=== PATIENT | female | born 1975 | race Caucasian/White ===

== ENCOUNTER 2019-04-06 00:41 | Emergency (ER) | payer SELFPAY ==
[2019-04-06 00:47] VITALS: BP 133/90
== END 2019-04-06 00:50 | disposition left against medical advice (07) ==
LOC: ED 00:41
DX: R41.3 Other amnesia (principal); Z53.21 Procedure and treatment not carried out due to patient leaving prior to being seen by health care provider
CPT/HCPCS: 99281

== ENCOUNTER 2019-04-06 06:19 | Emergency (ER) | payer SELFPAY ==
[2019-04-06] MEDS ORDERED: NS 0.9% 1000 ML** 1,000 ML IV ONE (06:54)
--- NOTE | 2019-04-06 06:58 | ED ---
Complex/Multi-Sys Presentation - HPI Summary HPI Summary: Patient is a 43-year-old female who presents emergency department for evaluation of questionable seizure-like activity that occurred through the evening. Patient has a history of IV heroin use states she used around 12 PM last night. Patient states shortly after she had several episodes where she was unconscious and her muscles were twitching and she was rigid according to her friend who is present. Friend states that she seemed to be partially conscious for events. Patient states she does not recall these events but also states she does not recall injecting heroin either. Patient currently complains of feeling fatigued and diffuse muscle soreness. She denies chest pain, shortness breath, fever, chills, abdominal pain, vomiting, diarrhea. She does note numerous wounds an abscess to her right arm. Patient also admits to using methamphetamines yesterday. Patient otherwise denies past medical history. Symptoms are moderate in severity. No current modifying factors. - History Of Current Complaint Chief Complaint: EDSeizure Time Seen by Provider: 04/06/19 06:34 Hx Obtained From: Patient, Family/Major Gifts Director - Allergies/Home Medications Allergies/Adverse Reactions: Allergies Allergy/AdvReac Type Severity Reaction Status Date / Time No Known Allergies Allergy Verified 04/06/19 06:37 PMH/Surg Hx/FS Hx/Imm Hx Previously Healthy: Yes Endocrine/Hematology History: Denies: Hx Anticoagulant Therapy, Hx Diabetes, Hx Thyroid Disease Cardiovascular History: Denies: Hx Congestive Heart Failure, Hx Deep Vein Thrombosis, Hx Hypertension , Hx Myocardial Infarction, Hx Pacemaker/ICD Respiratory History: Denies: Hx Asthma, Hx Chronic Obstructive Pulmonary Disease (COPD), Hx Lung Cancer, Hx Pneumonia, Hx Pulmonary Embolism GI History: Denies: Hx Gall Bladder Disease, Hx Gastrointestinal Bleed, Hx Ulcer, Hx Urosepsis History: Denies: Hx Kidney Stones, Hx Renal Disease Musculoskeletal History: Denies: Hx Rheumatoid Arthritis, Hx Osteoporosis Neurological History: Denies: Hx Dementia, Hx Migraine, Hx Seizures, Hx Transient Ischemic Attacks (TIA) Psychiatric History: Reports: Hx Substance Abuse Denies: Hx Anxiety, Hx Depression, Hx Schizophrenia, Hx Bipolar Disorder - Surgical History Surgery Procedure, Year, and Place: TUBAL LIGATION, APPENDECTOMY 2009 Infectious Disease History: No Infectious Disease History: Reports: Hx Hepatitis - hep c, Hx of Known/ Suspected MRSA Denies: Hx Clostridium Difficile, Hx Shingles, Hx Tuberculosis, Hx Known/ Suspected VRE, Hx Known/Suspected VRSA, History Other Infectious Disease, Traveled Outside the [place] in Last 30 Days - Family History Known Family History: Positive: Cardiac Disease, Hypertension Negative: Diabetes - Social History Occupation: Unemployed Lives: With Family Alcohol Use: Occasionally Hx Substance Use: Yes Substance Use Type: Reports: Heroin Smoking Status (MU): Never Smoked Tobacco Review of Systems Constitutional: Negative Negative: Fever, Chills Eyes: Negative ENT: Negative Cardiovascular: Negative Negative: Palpitations, Chest Pain Respiratory: Negative Negative: Shortness Of Breath, Cough Gastrointestinal: Negative Negative: Abdominal Pain, Vomiting, Diarrhea, Nausea Genitourinary: Negative Positive: Myalgia Positive: Other - numerous wounds Neurological: Other - muscle twitches Negative: Headache, Weakness, Paresthesia, Numbness, Syncope, Slurred Speech All Other Systems Reviewed And Are Negative: Yes Physical Exam Triage Information Reviewed: Yes Vital Signs On Initial Exam: Initial Vitals Temp Pulse Resp BP Pulse Ox 97.4 F 97 18 114/82 100 04/06/19 06:20 04/06/19 06:20 04/06/19 06:20 04/06/19 06:20 04/06/19 06:20 Vital Signs Reviewed: Yes Appearance: Positive: Well-Appearing - Pt. sitting up in bed in NAD. Friend present. Answers questions appropriately Skin: Positive: Warm, Dry, Other - Numerous wounds in various stages of healling to arms and legs. 4 cm area of fluctuance and induration to right AC region with small scab in center. No surrounding erythema. Eyes: Positive: Normal, EOMI, Other: - Pinpoint pupils bilaterally Neck: Positive: Supple, Nontender. Negative: Nuchal Rigidity Respiratory/Lung Sounds: Positive: Clear to Auscultation, Breath Sounds Present Cardiovascular: Positive: Normal, RRR. Negative: Murmur Abdomen Description: Positive: Nontender, Soft Musculoskeletal: Positive: Normal, Strength/ROM Intact Neurological: Positive: Normal, Sensory/Motor Intact, Alert, Oriented to Person Place, Time, CN Intact II-III, Reflexes Intact, Facial Symmetry, Speech Normal. Negative: Disoriented Psychiatric: Positive: Affect/Mood Appropriate - Dawn Coma Scale Best Eye Response: 4 - Spontaneous Best Motor Response: 6 - Obeys Commands Best Verbal Response: 5 - Oriented Coma Scale Total: 15 Procedures - Incision and Drainage Right Upper Anterior Arm Site: Right AC Anesthesia: Local, Lidocaine Instrument(s): Needle Diagnostics - Vital Signs Vital Signs Temp Pulse Resp BP Pulse Ox 04/06/19 06:40 98.6 F 04/06/19 06:39 93 23 97 04/06/19 06:37 90 22 112/66 100 04/06/19 06:20 97.4 F 97 18 114/82 100 - Laboratory Result Diagrams: 04/06/19 07:24 04/06/19 07:24 Lab Statement: Any lab studies that have been ordered have been reviewed, and results considered in the medical decision making process. Complex Multi-Symp Course/Dx Course Of Treatment: Pt. presenting with the above complaints. She is afebrile with stable VS. Neuro exam is unremarkable. Basic labs obtained and are unremarkable. Pt. in ER for roughly 3 hours without change in MS. Pt. has large abscess to right AC region. Pt. agreed to I and D. After incision made to right abscess, no purulent matter initially able to be expressed and pt. refused any futher probing of area. Area cleaned and dressed. WIll treat with clindamycin. To apply warm compresses. To schedule apt. with PCP in 2-3 days for further evaluation and wound check. To return to ER if sxs change or worsen. - Diagnoses Differential Diagnoses/HQI/PQRI: Metabolic Abnormality, Sepsis, Urinary Tract Infection, Other Provider Diagnoses: Abscess, Involuntary muscle contractions, IV drug user Discharge - Sign-Out/Discharge Documenting (check all that apply): Patient Departure Patient Received Moderate/Deep Sedation with Procedure: No - Discharge Plan Condition: Good Disposition: HOME Prescriptions: Clindamycin HCl 300 mg PO QID #40 capsule Patient Education Materials: Abscess (ED), Polysubstance Abuse (ED) Referrals: Logan Jay MD [Primary Care Provider] - Additional Instructions: Call PCP today for a close follow up appointment Take antibiotic as directed Apply warm compresses Avoid drug use Return to ER if symptoms change or worsen - Billing Disposition and Condition Condition: GOOD Disposition: Home
[2019-04-06 07:44] LABS: ABS Basophils 0.1 10^3/ul (0-0.2); ABS Eosinophils 0.5 10^3/ul (0-0.6); ABS Monocytes 0.8 10^3/ul (0-0.8); ABS Neutrophils 4.5 10^3/ul (1.5-7.7); Hematocrit 34 % (35-47); Hemoglobin 11.1 g/dL (12.0-16.0); Lymphocyte % 25.4 %; Mean Corpuscular HGB Conc 33 g/dL (31-36); Mean Corpuscular Hemoglobin 27 pg (27-31); Mean Corpuscular Volume 81 fL (80-97); Mean Platelet Volume 7.8 fL (7.4-10.4); Platelet Count 294 10^3/uL (150-450); Red Blood Count 4.13 10^6 /uL (3.70-4.87); Red Cell Distribution Width 16 % (10.5-15); White Blood Count 7.8 10^3/uL (3.5-10.8)
[2019-04-06 07:47] LABS: INR 0.97 (0.82-1.09)
[2019-04-06 08:06] LABS: ALT 28 U/L (7-52); AST 24 U/L (13-39); Albumin 3.6 g/dL (3.2-5.2); Alkaline Phosphatase 96 U/L (34-104); Anion Gap 4 mmol/L (2-11); BUN/Creatinine Ratio 19.1 (8-20); Blood Urea Nitrogen 13 mg/dL (6-24); CO2 Carbon Dioxide 26 mmol/L (22-32); Chloride 106 mmol/L (101-111); Creatine Kinase 90 U/L (10-223); EGFR African American 114.8 (>60); EGFR Non-African American 94.9 (>60); Globulin 3.5 g/dL (2-4); Glucose 116 mg/dL (70-100); Potassium 3.8 mmol/L (3.5-5.0); Sodium 136 mmol/L (135-145); Total Protein 7.1 g/dL (6.4-8.9)
[2019-04-06 08:08] LABS: HCG Pregnancy < 0.60 mIU/mL
[2019-04-06 09:01] LABS: Urine Appearance Cloudy; Urine Bacteria Absent (Absent); Urine Bilirubin Negative (Negative); Urine Blood Negative (Negative); Urine Color Yellow; Urine Glucose Negative (Negative); Urine Ketones Negative (Negative); Urine Nitrite Negative (Negative); Urine Protein Negative (Negative); Urine Red Blood Cell Trace(0-2/hpf) (Absent); Urine Specific Gravity 1.012 (1.010-1.030); Urine Squamous Epithelial Cell Present (Absent); Urine Urobilinogen Negative (Negative); Urine White Blood Cell Trace(0-5/hpf) (Absent)
[2019-04-06] MEDS ORDERED: Lidocaine 1%* 5 ML VIAL INJ ONE (09:06)
[2019-04-06 10:15] VITALS: BP 112/68
== END 2019-04-06 10:14 | disposition home or self-care (01) ==
LOC: ED 06:19
DX: L02.413 Cutaneous abscess of right upper limb (principal); M62.40 Contracture of muscle, unspecified site; F19.20 Other psychoactive substance dependence, uncomplicated; B19.20 Unspecified viral hepatitis C without hepatic coma
CPT/HCPCS: 36415; 80053; 81003; 81015; 82550; 83605; 83735; 84484; 84702; 85025; 85610; 87086; 93005; 99282

== ENCOUNTER 2019-11-16 15:10 | Emergency (ER) | payer MEDICAID ==
[2019-11-16 15:33] VITALS: BP 109/75
--- NOTE | 2019-11-16 16:36 | UC ---
Hand/Wrist HPI - HPI Summary HPI Summary: The patient is a 44-year-old female with a three-day history of progressively worsening bilateral hand paresthesias. They are worse at night. 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 Both her right and left hands frequently involved. She has numbness and tingling of all her fingers. Of note she states she has had a 15 pound weight gain in the past 2-3 weeks. She has also noticed that she is growing long facial hair. - History Of Current Complaint Chief Complaint: UCGeneralIllness Stated Complaint: FATIGUE, FINGER NUMBNESS Time Seen by Provider: 11/16/19 16:09 Hx Obtained From: Patient Hx Last Menstrual Period: 05/05/16 Onset/Duration: Gradual Onset, Lasting Days Severity Initially: Mild Severity Currently: Moderate Pain Intensity: 7 Pain Scale Used: 0-10 Numeric Character Of Pain: Burning - tingling Aggravating Factor(s): Movement Alleviating Factor(s): Rest Associated Signs And Symptoms: Positive: Numbness/Tingling Related History: Dominant Hand Right - Allergies/Home Medications Allergies/Adverse Reactions: Allergies Allergy/AdvReac Type Severity Reaction Status Date / Time No Known Allergies Allergy Verified 04/06/19 06:37 PMH/Surg Hx/FS Hx/Imm Hx Previously Healthy: Yes Other History Of: Negative For: Anticoagulant Therapy - Surgical History Surgical History: Yes Surgery Procedure, Year, and Place: TUBAL LIGATION, APPENDECTOMY 2009 - Family History Known Family History: Positive: Cardiac Disease, Hypertension Negative: Diabetes - Social History Alcohol Use: None Substance Use Type: None Smoking Status (MU): Never Smoked Tobacco Review of Systems All Other Systems Reviewed And Are Negative: Yes Constitutional: Positive: Negative Skin: Positive: Negative Eyes: Positive: Negative ENT: Positive: Negative Respiratory: Positive: Negative Cardiovascular: Positive: Negative Gastrointestinal: Positive: Negative Genitourinary: Positive: Negative Motor: Positive: Negative Neurovascular: Positive: Negative Musculoskeletal: Positive: Arthralgia - right wrist/left wrist Neurological: Positive: Paresthesia - bilat hands Psychological: Positive: Negative Physical Exam Triage Information Reviewed: Yes Appearance: Well-Appearing, No Pain Distress, Well-Nourished Vital Signs: Initial Vital Signs Temp 98.7 F 11/16/19 15:27 Pulse 73 11/16/19 15:27 Resp 18 11/16/19 15:27 BP 109/75 11/16/19 15:27 Pulse Ox 99 11/16/19 15:27 Vital Signs Reviewed: Yes Eyes: Positive: Conjunctiva Clear ENT: Positive: Hearing grossly normal. Negative: Nasal congestion, Nasal drainage, Tonsillar swelling, Tonsillar exudate, Muffled voice, Dental tenderness Dental Exam: Normal Neck: Positive: Supple, Nontender, No Lymphadenopathy, Other: - no thyromegaly Respiratory: Positive: Lungs clear, Normal breath sounds, No respiratory distress, No accessory muscle use, Respiratory distress Cardiovascular: Positive: RRR Musculoskeletal: Positive: ROM Intact, No Edema, Other: - bilateral + tinels and phalens Neurological: Positive: Alert Psychological Exam: Normal Skin Exam: Other - hirsuite Hand/Wrist Course/Dx - Differential Dx/Diagnosis Provider Diagnosis: Weight gain, Hand paresthesia Discharge ED - Sign-Out/Discharge Documenting (check all that apply): Patient Departure All imaging exams completed and their final reports reviewed: No Studies - Discharge Plan Condition: Stable Disposition: HOME Patient Education Materials: Paresthesia (ED) Forms: *Work Release Referrals: Logan Jay MD [Primary Care Provider] - 7 Days Additional Instructions: aleve 1-2 twice daily you will need further evaluation of your symptoms try wrist splint at night blood work pending - Billing Disposition and Condition Condition: STABLE Disposition: Home
[2019-11-16 19:02] LABS: ABS Eosinophils 0.2 10^3/ul (0-0.6); ABS Lymphocytes 1.5 10^3/ul (1.0-4.8); ABS Monocytes 0.6 10^3/ul (0-0.8); ABS Neutrophils 2.1 10^3/ul (1.5-7.7); Hematocrit 39 % (35-47); Hemoglobin 13.1 g/dL (12.0-16.0); Lymphocyte % 34.5 %; Mean Corpuscular HGB Conc 34 g/dL (31-36); Mean Corpuscular Hemoglobin 29 pg (27-31); Mean Corpuscular Volume 87 fL (80-97); Mean Platelet Volume 7.9 fL (7.4-10.4); Nucleated Red Blood Cells % 0.1; Platelet Count 248 10^3/uL (150-450); Red Blood Count 4.47 10^6 /uL (3.70-4.87); Red Cell Distribution Width 14 % (10-15); White Blood Count 4.4 10^3/uL (3.5-10.8)
[2019-11-16 19:17] LABS: Albumin 3.8 g/dL (3.2-5.2); Calcium 8.8 mg/dL (8.6-10.3); Potassium 4.4 mmol/L (3.5-5.0); Total Bilirubin 0.3 mg/dL (0.2-1.0)
[2019-11-16 19:23] LABS: Albumin/Globulin Ratio 1.3 (1-3); BUN/Creatinine Ratio 19.4 (8-20); EGFR Non-African American 88.4 (>60); Total Protein 6.8 g/dL (6.4-8.9)
[2019-11-16 19:39] LABS: TSH (Thyroid Stimulating Horm) 3.67 mcIU/mL (0.34-5.60)
--- NOTE | 2019-11-17 20:49 | UC ---
- Progress Note Progress Note: CBC and CMP reviewed. CBC normal. CMP unremarkable except for mildly elevated ALT and AST which are unlikely related to patient's symptoms and may represent a normal variant for the patient. She should keep her follow up as previously instructed. No change in her plan of care. Course/Dx - Diagnoses Provider Diagnoses: Weight gain, Hand paresthesia Discharge ED - Sign-Out/Discharge Documenting (check all that apply): Post-Discharge Follow Up All imaging exams completed and their final reports reviewed: No Studies - Discharge Plan Condition: Stable Disposition: HOME Patient Education Materials: Paresthesia (ED) Forms: *Work Release Referrals: Logan Jay MD [Primary Care Provider] - 7 Days Additional Instructions: aleve 1-2 twice daily you will need further evaluation of your symptoms try wrist splint at night blood work pending - Billing Disposition and Condition Condition: STABLE Disposition: Home
--- NOTE | 2019-11-19 09:44 | UC ---
- Progress Note Progress Note: Antinuclear antibody lab results from November 16, 2019 comes back as weakly positive at 1.7. The week positive ranges 1.1 - 2.9. The antinuclear antibody is a marker for inflammation. However it's relatively nonspecific and does not give us a specific diagnosis for the patient's condition hand tingling. CBC normal CMP shows a slightly elevated ALT and AST. Nursing to call patient inform them of the results and to follow-up with her primary care doctor about these results and they're symptoms. Course/Dx - Diagnoses Provider Diagnoses: Weight gain, Hand paresthesia Discharge ED - Sign-Out/Discharge Documenting (check all that apply): Patient Departure All imaging exams completed and their final reports reviewed: No Studies - Discharge Plan Condition: Stable Disposition: HOME Patient Education Materials: Paresthesia (ED) Forms: *Work Release Referrals: Logan Jay MD [Primary Care Provider] - 7 Days Additional Instructions: aleve 1-2 twice daily you will need further evaluation of your symptoms try wrist splint at night blood work pending - Billing Disposition and Condition Condition: STABLE Disposition: Home
== END 2019-11-16 16:56 | disposition home or self-care (01) ==
LOC: UCEAST 15:10
DX: R20.2 Paresthesia of skin (principal); R63.5 Abnormal weight gain; M25.532 Pain in left wrist; M25.531 Pain in right wrist
CPT/HCPCS: 36415; 80053; 81003; 84443; 84702; 85025; 86038; 99212; G0463

== ENCOUNTER 2019-11-20 16:58 | Emergency (ER) | payer MEDICAID ==
[2019-11-20 17:12] VITALS: BP 122/67
--- NOTE | 2019-11-20 17:12 | UC ---
Neck Pain HPI - HPI Summary HPI Summary: 44 yo female presents with b/l hand numbness. She tells me that over the last week or so she has noticed b/l hand paresthesias that is worse in the right hand. She states that when she is working or using her hands a lot that these are worse. Better with rest. She works in a grocery store. She states she has tingling and numbness in her entire right hand, but in the left it tends to only be her 5th and 1st digits. Also mentions some neck pain that has been ongoing for months - no radiating pain or numbness extending from neck. Denies specific injury. She is left handed - History of Current Complaint Chief Complaint: UCGeneralIllness Stated Complaint: NUMBNESS IN HANDS Time Seen by Provider: 11/20/19 17:11 Hx Obtained From: Patient Hx Last Menstrual Period: SEPTEMBER 2019 Onset/Duration: Gradual Onset Severity: Moderate Pain Intensity: 8 Pain Scale Used: 0-10 Numeric - Allergies/Home Medications Allergies/Adverse Reactions: Allergies Allergy/AdvReac Type Severity Reaction Status Date / Time No Known Allergies Allergy Verified 04/06/19 06:37 PMH/Surg Hx/FS Hx/Imm Hx - Additional Past Medical History Additional PMH: IVDA Other History Of: Negative For: Anticoagulant Therapy - Surgical History Surgical History: Yes Surgery Procedure, Year, and Place: TUBAL LIGATION, APPENDECTOMY 2009 - Family History Known Family History: Positive: Cardiac Disease, Hypertension Negative: Diabetes - Social History Alcohol Use: None Substance Use Type: Heroin - past Smoking Status (MU): Never Smoked Tobacco Review of Systems All Other Systems Reviewed And Are Negative: No Constitutional: Positive: Negative Skin: Positive: Negative Respiratory: Positive: Negative Cardiovascular: Positive: Negative Gastrointestinal: Positive: Negative Neurovascular: Positive: Negative Musculoskeletal: Positive: Other: - Neck pain Neurological: Positive: Paresthesia Psychological: Positive: Negative Physical Exam - Summary Physical Exam Summary: GENERAL: NAD. WDWN. No pain distress. SKIN: No rashes, sores, lesions, or open wounds. NECK: FROM. NTTP. Negative spurlings. CHEST: No accessory muscle use. Breathing comfortably and in no distress. CV: Pulses intact radial and ulnar. Cap refill <2seconds MSK: RIGHT WRIST: FROM. NTTP. Strength 5/5 including plaster foreman strength. No edema or obvious bony deformities. No snuffbox tenderness. Positive phalen. LEFT WRIST: FROM. NTTP. Strength 5/5 including plaster foreman strength. No edema or obvious bony deformities. No snuffbox tenderness. Weakly positive phalen. NEURO: Alert. Sensations intact hand and all fingers. PSYCH: Age appropriate behavior. Triage Information Reviewed: Yes Vital Signs: Initial Vital Signs Temp 97.9 F 11/20/19 17:09 Pulse 68 11/20/19 17:09 Resp 18 11/20/19 17:09 BP 122/67 11/20/19 17:09 Pulse Ox 100 11/20/19 17:09 Vital Signs Reviewed: Yes Diagnostics - Radiology B/L wrists Radiology Interpretation Completed By: Radiologist Summary of Radiographic Findings: IMPRESSION: No fracture identified. Cervical Radiology Interpretation Completed By: Radiologist Summary of Radiographic Findings: IMPRESSION: 1. Mild multilevel spondylosis with no compression deformity of cervical spine. Neck Pain Course/Dx - Course Course Of Treatment: XRs as above. 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 Advised to continue using wrist brace and f/u with Orthopedics for further evaluation. Will draw for lyme test today as this was not done on her previous labwork. Reviewed labwork from her last visit and recommended f/u with PCP - she states Dr. Ambriz is no longer her PCP, therefore she was provided with the [facility] [place] information to establish. - Differential Dx/Diagnosis Provider Diagnosis: Hand paresthesia Discharge ED - Sign-Out/Discharge Documenting (check all that apply): Patient Departure All imaging exams completed and their final reports reviewed: Yes - Discharge Plan Condition: Stable Disposition: HOME Patient Education Materials: Paresthesia (ED) Forms: *Work Release Referrals: Logan Jay MD [Primary Care Provider] - Tanika Sapp MD [Medical Doctor] - As Soon As Possible [facility] [Outside] - As Soon As Possible Additional Instructions: If you develop a fever, shortness of breath, chest pain, new or worsening symptoms - please call your PCP or go to the ED immediately. I recommend that you call Orthopedics at the number below to schedule an appointment for further evaluation of your hand numbness Lyme test is pending - Billing Disposition and Condition Condition: STABLE Disposition: Home - Attestation Statements Provider Attestation: Per institutional requirements, I have reviewed the chart, however, I was not consulted specifically or made aware of this patient by the midlevel provider. I did not personally evaluate, interact with , or disposition this patient.
== END 2019-11-20 18:20 | disposition home or self-care (01) ==
LOC: UCEAST 16:58
DX: R20.2 Paresthesia of skin (principal); M47.892 Other spondylosis, cervical region; M54.2 Cervicalgia
CPT/HCPCS: 36415; 72050; 86618; 99211; G0463

== ENCOUNTER 2019-11-29 20:29 | Emergency (ER) | payer MEDICAID ==
[2019-11-29 20:38] VITALS: BP 143/87
[2019-11-29] MEDS ORDERED: hydrOXYzine HCL TAB* 25 MG PO ONE (21:10)
--- NOTE | 2019-11-29 21:22 | UC ---
Palpitation/Dysrhythmia HP - HPI Summary HPI Summary: The patient is a 44-year-old female who is had a three-day history of anxiety, panic, fluttering in her stomach, and palpitations. She states that she knows she know she has an ectopic atrial rhythm. She missed 2 days of work last week and requests an excuse. She states she has been under a lot of stress of both home and work. She denies any suicidal or homicidal ideation. She denies any hallucinations. She was seen here a few weeks ago with bilateral arm paresthesias which she states haven't improved. She did not seek follow-up with that issue yet. - History of Current Complaint Chief Complaint: UCGeneralIllness Stated Complaint: ANXIOUS Time Seen by Provider: 11/29/19 20:33 Hx Obtained From: Patient Hx Last Menstrual Period: 09/25/19 Onset/Duration: Gradual Onset, Lasting Days Timing: Constant Severity Initially: Moderate Severity Currently: Moderate Pain Intensity: 0 Pain Scale Used: 0-10 Numeric Character: Pounding, Fluttering Aggravating Factor(s): Other - stree Alleviating Factor(s): Nothing Associated Signs & Symptoms: Negative: Lightheadedness, Dizzy, Syncope, Chest Pain, Shortness of Breath, Diaphoresis, Nausea, Vomiting - Allergy/Home Medications Allergies/Adverse Reactions: Allergies Allergy/AdvReac Type Severity Reaction Status Date / Time No Known Allergies Allergy Verified 11/29/19 20:38 Home Medications: Home Medications Buprenorphine HCl/Naloxone HCl [Suboxone 12 mg-3 mg Sl Film] 1 film PO DAILY [History Confirmed 11/29/19] PMH/Surg Hx/FS Hx/Imm Hx Previously Healthy: Yes - hx IVDA Other History Of: Negative For: Anticoagulant Therapy - Surgical History Surgical History: Yes Surgery Procedure, Year, and Place: TUBAL LIGATION, APPENDECTOMY 2009 - Family History Known Family History: Positive: Cardiac Disease, Hypertension Negative: Diabetes - Social History Alcohol Use: None Substance Use Type: None Smoking Status (MU): Never Smoked Tobacco Review of Systems All Other Systems Reviewed And Are Negative: Yes Constitutional: Positive: Negative Skin: Positive: Negative Eyes: Positive: Negative ENT: Positive: Negative Respiratory: Positive: Negative Cardiovascular: Positive: Palpitations Gastrointestinal: Positive: Negative Genitourinary: Positive: Negative Motor: Positive: Negative Neurovascular: Positive: Negative Musculoskeletal: Positive: Negative Neurological: Positive: Negative Psychological: Positive: Anxious Physical Exam Triage Information Reviewed: Yes Appearance: Well-Appearing, No Pain Distress, Well-Nourished Vital Signs: Initial Vital Signs Temp 99.2 F 11/29/19 20:31 Pulse 76 11/29/19 20:31 Resp 12 11/29/19 20:31 BP 143/87 11/29/19 20:31 Pulse Ox 100 11/29/19 20:31 Vital Signs Reviewed: Yes Eyes: Positive: Conjunctiva Clear ENT: Positive: Hearing grossly normal, Uvula midline. Negative: Nasal congestion, Nasal drainage Neck: Positive: Supple, Nontender, No Lymphadenopathy Respiratory: Positive: Lungs clear, Normal breath sounds, No respiratory distress, No accessory muscle use Cardiovascular: Positive: RRR, No Murmur Abdomen Description: Positive: Nontender, Soft. Negative: CVA Tenderness (R), CVA Tenderness (L) Musculoskeletal: Positive: ROM Intact, No Edema Neurological Exam: Other - no tremors/non focal exam Neurological: Positive: Alert Psychological Exam: Normal Skin Exam: Normal Diagnostics - EKG Cardiac Rate: NL Cardiac Rhythm: Other Rhythm: Old - ectopic atrial rhythm ST Segment: Normal EKG Comparison: No Significant Change Palpitations Course/Dx - Differential Dx/Diagnosis Provider Diagnosis: Situational anxiety, Palpitations Discharge ED - Sign-Out/Discharge Documenting (check all that apply): Patient Departure All imaging exams completed and their final reports reviewed: No Studies - Discharge Plan Condition: Stable Disposition: HOME Prescriptions: busPIRone TAB* [Buspar TAB*] 10 mg PO BID #30 tab Patient Education Materials: Anxiety (ED), Heart Palpitations (ED) Forms: *Gen. Provider Communication, *Work Release Referrals: [facility] [Outside] - As Soon As Possible Additional Instructions: avoid caffeine/alcohol/smoking - Billing Disposition and Condition Condition: STABLE Disposition: Home
== END 2019-11-29 21:25 | disposition home or self-care (01) ==
LOC: UCEAST 20:29
DX: F41.8 Other specified anxiety disorders (principal); R00.2 Palpitations
CPT/HCPCS: 99212; A9270-GY; G0463

== ENCOUNTER 2019-12-23 21:22 | Emergency (ER) | payer OTHER ==
[2019-12-23 21:44] VITALS: BP 141/88
[2019-12-23 21:57] LABS: Influenza A Molecular NEGATIVE (Negative); Influenza B Molecular NEGATIVE (Negative)
--- NOTE | 2019-12-23 22:14 | UC ---
FLU HPI - HPI Summary HPI Summary: ONSET LAST NIGHT OF CHILLS, BODY ACHES, NAUSEA AND FATIGUE. IS CONCERNED ABOUT FLU. NO COUGH, CONGESTION, SORE THROAT OR EAR PAIN. NO NAUSEA/VOMITING. - History of Current Complaint Chief Complaint: UCGeneralIllness Stated Complaint: FLU-LIKE SYMPTOMS Time Seen by Provider: 12/23/19 21:25 Hx Obtained From: Patient Hx Last Menstrual Period: 2 weeks ago Onset/Duration: Gradual Onset, Lasting Days - 1 DAY, Still Present Severity Currently: Moderate Severity Initially: Moderate Pain Intensity: 6 Pain Scale Used: 0-10 Numeric Associated Signs & Symptoms: Positive: Myalgia. Negative: Fever, Cough, Sore Throat, Nasal Congestion - Allergy/Home Medications Allergies/Adverse Reactions: Allergies Allergy/AdvReac Type Severity Reaction Status Date / Time No Known Allergies Allergy Verified 12/23/19 21:42 PMH/Surg Hx/FS Hx/Imm Hx Psychological History: Anxiety Other History Of: Hepatitis C Negative For: Anticoagulant Therapy - Surgical History Surgical History: Yes Surgery Procedure, Year, and Place: TUBAL LIGATION, APPENDECTOMY 2009 - Family History Known Family History: Positive: Cardiac Disease, Hypertension Negative: Diabetes - Social History Alcohol Use: None Substance Use Type: None Smoking Status (MU): Never Smoked Tobacco Review of Systems All Other Systems Reviewed And Are Negative: Yes Constitutional: Positive: Chills, Fatigue ENT: Positive: Negative Respiratory: Positive: Negative Cardiovascular: Positive: Negative Gastrointestinal: Positive: Nausea Genitourinary: Positive: Negative Musculoskeletal: Positive: Myalgia Physical Exam Triage Information Reviewed: Yes Appearance: Well-Appearing, No Pain Distress, Well-Nourished Vital Signs: Initial Vital Signs Temp 98.9 F 12/23/19 21:42 Pulse 93 12/23/19 21:42 Resp 18 12/23/19 21:42 BP 141/88 12/23/19 21:42 Pulse Ox 96 12/23/19 21:42 Laboratory Tests 12/23/19 21:46 Influenza A (Rapid) Negative Influenza B (Rapid) Negative Vital Signs Reviewed: Yes Eyes: Positive: Conjunctiva Clear ENT: Positive: Hearing grossly normal, Pharynx normal, TMs normal Neck: Positive: Supple, Nontender, No Lymphadenopathy Respiratory Exam: Normal Cardiovascular Exam: Normal Abdomen Description: Positive: Soft Musculoskeletal: Positive: No Edema Neurological: Positive: Alert Psychological: Positive: Age Appropriate Behavior Skin: Negative: Rashes Flu Course/Dx - Course Course Of Treatment: FLU SWAB NEGATIVE. LIKELY VIRALLY MEDIATED SYMPTOMS THAT SHOULD RESOLVE ON THEIR WITH TIME. REST, HYDRATE, OTC MEDS NEEDED. FOLLOW-UP IF NOT IMPROVING EXPECTED OVER THE NEXT WEEK OR SO. - Differential Dx/Diagnosis Provider Diagnosis: Viral syndrome Discharge ED - Sign-Out/Discharge Documenting (check all that apply): Patient Departure All imaging exams completed and their final reports reviewed: No Studies - Discharge Plan Condition: Stable Disposition: HOME Patient Education Materials: Viral Syndrome (ED) Forms: *Work Release Referrals: Logan Jay MD [Medical Doctor] - If Needed Additional Instructions: FLU SWAB NEGATIVE. YOUR SYMPTOMS ARE LIKELY VIRALLY MEDIATED AND SHOULD RESOLVE ON THEIR OWN WITH TIME. NO INDICATION FOR ANTIBIOTICS AT PRESENT. REST, HYDRATE , OTC MEDS NEEDED. SEEK FOLLOW-UP IF YOU ARE NOT IMPROVING OVER THE NEXT 1-2 WEEKS. - Billing Disposition and Condition Condition: STABLE Disposition: Home
== END 2019-12-23 22:15 | disposition home or self-care (01) ==
LOC: UCEAST 21:22
DX: B34.9 Viral infection, unspecified (principal); R68.83 Chills (without fever); M79.10 Myalgia, unspecified site; R11.0 Nausea; R53.83 Other fatigue
CPT/HCPCS: 99211; G0463

== ENCOUNTER 2021-01-15 05:52 | Inpatient (IN) ==
[2021-01-15] MEDS ORDERED: NS 0.9% 1000 ml BAG 1,000 ML IV ONE ×2 (06:17→10:10)
[2021-01-15 09:08] LABS: ABS Basophils 0.1 10^3/ul (0-0.2); ABS Lymphocytes 0.9 10^3/ul (1.0-4.8); ABS Monocytes 1.4 10^3/ul (0-0.8); ABS Neutrophils 11.6 10^3/ul (1.5-7.7); Eosinophil % 0.2 %; Hematocrit 35 % (35-47); Lymphocyte % 6.4 %; Mean Corpuscular HGB Conc 34 g/dL (31-36); Mean Corpuscular Hemoglobin 31 pg (27-31); Mean Corpuscular Volume 90 fL (80-97); Mean Platelet Volume 7.8 fL (7.4-10.4); Nucleated Red Blood Cells % 0.1; Platelet Count 286 10^3/uL (150-450); Red Blood Count 3.88 10^6 /uL (3.70-4.87); Red Cell Distribution Width 14 % (10-15); White Blood Count 13.9 10^3/uL (3.5-10.8)
[2021-01-15 09:33] LABS: ALT 43 U/L (7-52); AST 34 U/L (13-39); Albumin 3.1 g/dL (3.2-5.2); Albumin/Globulin Ratio 0.9 (1-3); Alkaline Phosphatase 136 U/L (34-104); Anion Gap 10 mmol/L (2-11); BUN/Creatinine Ratio 13.2 (8-20); Blood Urea Nitrogen 7 mg/dL (6-24); C Reactive Protein 266.71 mg/L (<8.01); CO2 Carbon Dioxide 24 mmol/L (22-32); Calcium 8.4 mg/dL (8.6-10.3); Chloride 93 mmol/L (101-111); EGFR African American 151.6 (>60); EGFR Non-African American 125.3 (>60); Globulin 3.4 g/dL (2-4); Glucose 98 mg/dL (70-100); Potassium 3.1 mmol/L (3.5-5.0); Sodium 127 mmol/L (135-145); Total Protein 6.5 g/dL (6.4-8.9)
[2021-01-15 09:34] LABS: Troponin I 0.05 ng/mL (<0.03)
[2021-01-15] MEDS ORDERED: Iohexol 300 (CONTRAST) 10 ML SDV IV ONE (09:41)
[2021-01-15 09:50] LABS: INR 1.29 (0.82-1.09)
[2021-01-15 10:02] LABS: Ferritin 106.8 ng/mL (11-307)
[2021-01-15 11:15] LABS: LDH 316 U/L (140-271)
[2021-01-15] MEDS ORDERED: Vancomycin 1,500 MG in NS 0.9% 250 ml 250 ML IVPB ONE (12:16)
[2021-01-15] MEDS ORDERED: cefTRIAXone 2 GM ADDV.VIAL 2 GM in NS 0.9% 100 ml BAG 100 ML IVPB ONE (12:16)
[2021-01-15 12:39] LABS: Erythrocyte Sed Rate 84 mm/Hr (0-19)
[2021-01-15] MEDS ORDERED: Ondansetron 4 mg VIAL 2 MG/ML 2 ml VIAL IV PRN (13:21)
[2021-01-15] MEDS ORDERED: NS 0.9% 250 ml 250 ML ONE (13:39)
[2021-01-15] MEDS ORDERED: Enoxaparin 40 MG/0.4 ML SYR SUBCUT SCH (14:00)
[2021-01-15] MEDS ORDERED: Vancomycin per Pharmacy 1 EA NOTE FOLLOW UP SCH (14:00)
[2021-01-15] MEDS ORDERED: Potassium Chloride LIQUID 20 MEQ/15 ML LIQUID PO ONE (14:21)
[2021-01-15] MEDS ORDERED: HYDROmorphone 1 MG/1 ML SYRINGE IV SLOW PU ONE ×2 (14:24→16:23)
[2021-01-15 15:17] LABS: Troponin I 0.03 ng/mL (<0.03)
[2021-01-15] MEDS: Calcium Carb (TUMS) 500 mg CHEW TAB PO PRN (15:52)
[2021-01-15] MEDS ORDERED: Gadoteridol (CONTRAST) 279.3 MG/ML 10 ML IV ONE (18:15)
[2021-01-15] MEDS: Vancomycin 1000 MG in NS 0.9% 250 ML IVPB SCH (20:27)
[2021-01-15] MEDS: Morphine 2 MG/ML SYRINGE IV PRN (21:38)
[2021-01-16] MEDS: Morphine 2 MG/ML SYRINGE IV PRN ×5 (05:09→23:09)
[2021-01-16] MEDS: Vancomycin 1000 MG in NS 0.9% 250 ML IVPB SCH (05:10)
[2021-01-16 07:20] LABS: ABS Lymphocytes 0.8 10^3/ul (1.0-4.8); ABS Monocytes 1.3 10^3/ul (0-0.8); Eosinophil % 0.3 %; Hematocrit 36 % (35-47); Hemoglobin 11.9 g/dL (12.0-16.0); Lymphocyte % 5.3 %; Mean Corpuscular HGB Conc 33 g/dL (31-36); Mean Corpuscular Hemoglobin 30 pg (27-31); Mean Corpuscular Volume 91 fL (80-97); Mean Platelet Volume 7.1 fL (7.4-10.4); Nucleated Red Blood Cells % 0.1; Platelet Count 291 10^3/uL (150-450); Red Cell Distribution Width 14 % (10-15); White Blood Count 15.1 10^3/uL (3.5-10.8)
[2021-01-16 08:11] LABS: CO2 Carbon Dioxide 22 mmol/L (22-32); Calcium 8.1 mg/dL (8.6-10.3); Chloride 102 mmol/L (101-111); Sodium 135 mmol/L (135-145)
[2021-01-16 08:17] LABS: BUN/Creatinine Ratio 12.5 (8-20); Blood Urea Nitrogen 6 mg/dL (6-24); EGFR Non-African American 140.5 (>60); Glucose 106 mg/dL (70-100)
[2021-01-16 09:07] LABS: Anion Gap 11 mmol/L (2-11)
[2021-01-16 09:11] LABS: Troponin I 0.02 ng/mL (<0.03)
[2021-01-16 10:08] LABS: Potassium Redraw 3.4 mmol/L (3.5-5.0)
[2021-01-16 10:19] LABS: Total Bilirubin 1.6 mg/dL (0.2-1.0)
[2021-01-16] MEDS: Venlafaxine XR 75 mg PO SCH (11:11)
[2021-01-16] MEDS: Buprenorp/Nalox 4-1 MG FILM SL FILM SCH (11:22)
[2021-01-16] MEDS ORDERED: Potassium Chlor 20 meq TAB.ER PO ONE (11:30)
[2021-01-16] MEDS ORDERED: Vancomycin Trough Check NOTE FOLLOW UP ONE (12:30)
[2021-01-16] MEDS: Heparin 5000 UNITS/ML 1 mL VIAL SUBCUT SCH ×2 (13:20→23:10)
[2021-01-16] MEDS: ceFAZolin 2 GM PREMIX 2 GM/50 ML BAG IVPB SCH ×2 (13:21→23:10)
[2021-01-16] MEDS ORDERED: Perflutren Lipid Microsphere 3 ML VIAL ONE (13:56)
[2021-01-16] MEDS ORDERED: cefTRIAXone 2 GM ADDV.VIAL 2 GM in NS 0.9% 100 ml BAG 100 ML IV SCH (14:00)
[2021-01-17] MEDS: Morphine 2 MG/ML SYRINGE IV PRN ×5 (03:16→21:22)
[2021-01-17] MEDS: Heparin 5000 UNITS/ML 1 mL VIAL SUBCUT SCH ×3 (05:56→21:26)
[2021-01-17] MEDS: ceFAZolin 2 GM PREMIX 2 GM/50 ML BAG IVPB SCH ×3 (05:56→21:28)
[2021-01-17] MEDS: Venlafaxine XR 75 mg PO SCH (08:05)
[2021-01-17] MEDS: Buprenorp/Nalox 4-1 MG FILM SL FILM SCH (08:06)
[2021-01-17 08:07] LABS: ABS Basophils 0.1 10^3/ul (0-0.2); ABS Eosinophils 0.2 10^3/ul (0-0.6); ABS Lymphocytes 1.2 10^3/ul (1.0-4.8); ABS Monocytes 1.1 10^3/ul (0-0.8); ABS Neutrophils 11.7 10^3/ul (1.5-7.7); Eosinophil % 1.2 %; Hematocrit 36 % (35-47); Hemoglobin 12.1 g/dL (12.0-16.0); Lymphocyte % 8.7 %; Mean Corpuscular HGB Conc 33 g/dL (31-36); Mean Corpuscular Hemoglobin 31 pg (27-31); Mean Corpuscular Volume 92 fL (80-97); Mean Platelet Volume 7.3 fL (7.4-10.4); Platelet Count 317 10^3/uL (150-450); Red Blood Count 3.95 10^6 /uL (3.70-4.87); Red Cell Distribution Width 14 % (10-15); White Blood Count 14.3 10^3/uL (3.5-10.8)
[2021-01-17 08:15] LABS: Calcium 8.3 mg/dL (8.6-10.3); Potassium 3.2 mmol/L (3.5-5.0)
[2021-01-17 08:21] LABS: BUN/Creatinine Ratio 17.3 (8-20); EGFR Non-African American 128.1 (>60)
[2021-01-17 11:36] LABS: Hepatitis B Surface Antigen Nonreactive (Nonreactive)
[2021-01-17 11:47] LABS: HIV 4th Generation Nonreactive (Nonreactive)
[2021-01-17] MEDS ORDERED: Potassium Chlor 20 meq TAB.ER PO ONE (11:47)
[2021-01-17 11:54] LABS: Hepatitis B Surface Ab Immune (Immune)
[2021-01-17] MEDS: KCL 10 MEQ/50 ML IVPREMIX 10 MEQ/50 ML BAG IV SCH ×2 (12:11→15:00)
[2021-01-17] MEDS: Calcium Carb (TUMS) 500 mg CHEW TAB PO PRN (12:21)
[2021-01-17] MEDS ORDERED: Morphine 2 MG/ML SYRINGE IV PRN (19:15)
[2021-01-18] MEDS: Morphine ORAL.SOLN 10 mg 2 mg/ml UDC 5 ml (10 mg) PO PRN ×4 (01:23→20:18)
[2021-01-18] MEDS: Morphine 2 MG/ML SYRINGE IV PRN ×3 (05:28→21:35)
[2021-01-18] MEDS: Heparin 5000 UNITS/ML 1 mL VIAL SUBCUT SCH ×3 (05:29→21:50)
[2021-01-18] MEDS: ceFAZolin 2 GM PREMIX 2 GM/50 ML BAG IVPB SCH ×3 (05:29→21:47)
[2021-01-18 08:46] LABS: Hematocrit 35 % (35-47); Hemoglobin 11.5 g/dL (12.0-16.0); Mean Corpuscular HGB Conc 33 g/dL (31-36); Mean Corpuscular Hemoglobin 30 pg (27-31); Mean Corpuscular Volume 91 fL (80-97); Mean Platelet Volume 7.4 fL (7.4-10.4); Platelet Count 322 10^3/uL (150-450); Red Blood Count 3.84 10^6 /uL (3.70-4.87); Red Cell Distribution Width 14 % (10-15); White Blood Count 13.9 10^3/uL (3.5-10.8)
[2021-01-18 09:02] LABS: BUN/Creatinine Ratio 17.6 (8-20); Blood Urea Nitrogen 9 mg/dL (6-24); CO2 Carbon Dioxide 23 mmol/L (22-32); Calcium 8.5 mg/dL (8.6-10.3); Chloride 103 mmol/L (101-111); EGFR African American 158.5 (>60); Glucose 118 mg/dL (70-100); Sodium 135 mmol/L (135-145)
[2021-01-18] MEDS: Buprenorp/Nalox 4-1 MG FILM SL FILM SCH (09:25)
[2021-01-18] MEDS: Venlafaxine XR 75 mg PO SCH (09:25)
[2021-01-18] MEDS: Nicotine GUM 4MG FRUIT FLAVOR PO PRN ×3 (09:26→18:02)
[2021-01-18 09:41] LABS: ABS Basophils 0.1 10^3/ul (0-0.2); ABS Eosinophils 0.2 10^3/ul (0-0.6); ABS Lymphocytes 1.7 10^3/ul (1.0-4.8); ABS Monocytes 1.4 10^3/ul (0-0.8); ABS Neutrophils 10.6 10^3/ul (1.5-7.7); Eosinophil % 1.2 %; Lymphocyte % 12.4 %
[2021-01-18 09:43] LABS: Anion Gap 9 mmol/L (2-11)
[2021-01-18 11:23] LABS: C Reactive Protein 202.96 mg/L (<8.01)
[2021-01-19] MEDS: Morphine ORAL.SOLN 10 mg 2 mg/ml UDC 5 ml (10 mg) PO PRN ×6 (00:22→21:34)
[2021-01-19] MEDS: Heparin 5000 UNITS/ML 1 mL VIAL SUBCUT SCH ×3 (05:25→21:37)
[2021-01-19] MEDS: Morphine 2 MG/ML SYRINGE IV PRN ×2 (05:25→17:41)
[2021-01-19] MEDS: ceFAZolin 2 GM PREMIX 2 GM/50 ML BAG IVPB SCH ×3 (05:26→21:43)
[2021-01-19] MEDS: Buprenorp/Nalox 4-1 MG FILM SL FILM SCH (08:00)
[2021-01-19] MEDS: Nicotine GUM 4MG FRUIT FLAVOR PO PRN ×2 (08:00→11:05)
[2021-01-19] MEDS: Venlafaxine XR 75 mg PO SCH (08:01)
[2021-01-19 08:44] LABS: ABS Basophils 0.1 10^3/ul (0-0.2); ABS Eosinophils 0.2 10^3/ul (0-0.6); ABS Lymphocytes 1.8 10^3/ul (1.0-4.8); ABS Monocytes 1.2 10^3/ul (0-0.8); ABS Neutrophils 8.3 10^3/ul (1.5-7.7); Eosinophil % 2.1 %; Hematocrit 33 % (35-47); Lymphocyte % 15.2 %; Mean Corpuscular HGB Conc 33 g/dL (31-36); Mean Corpuscular Hemoglobin 30 pg (27-31); Mean Corpuscular Volume 91 fL (80-97); Mean Platelet Volume 7.2 fL (7.4-10.4); Nucleated Red Blood Cells % 0.1; Platelet Count 382 10^3/uL (150-450); Red Blood Count 3.66 10^6 /uL (3.70-4.87); Red Cell Distribution Width 15 % (10-15); White Blood Count 11.6 10^3/uL (3.5-10.8)
[2021-01-19 09:01] LABS: BUN/Creatinine Ratio 23.3 (8-20); Calcium 8.6 mg/dL (8.6-10.3); EGFR Non-African American 159.5 (>60); Potassium 3.6 mmol/L (3.5-5.0)
[2021-01-19 12:29] LABS: Hepatitis Be Antigen Negative (Negative)
[2021-01-19 12:45] LABS: Hepatitis Be Antibody Negative (Negative)
[2021-01-19] MEDS: Lidocaine Patch REMOVE PATCH PATCH OFF SCH (23:30)
[2021-01-20] MEDS: Morphine ORAL.SOLN 10 mg 2 mg/ml UDC 5 ml (10 mg) PO PRN ×3 (01:47→19:40)
[2021-01-20] MEDS: Nicotine GUM 4MG FRUIT FLAVOR PO PRN ×2 (03:23→18:05)
[2021-01-20] MEDS: Morphine 2 MG/ML SYRINGE IV PRN ×2 (06:11→17:59)
[2021-01-20] MEDS: Heparin 5000 UNITS/ML 1 mL VIAL SUBCUT SCH ×3 (06:14→21:09)
[2021-01-20] MEDS: ceFAZolin 2 GM PREMIX 2 GM/50 ML BAG IVPB SCH ×3 (06:16→21:07)
[2021-01-20 07:14] LABS: Hematocrit 33 % (35-47); Mean Corpuscular HGB Conc 33 g/dL (31-36); Mean Corpuscular Hemoglobin 30 pg (27-31); Mean Corpuscular Volume 92 fL (80-97); Mean Platelet Volume 7.5 fL (7.4-10.4); Platelet Count 461 10^3/uL (150-450); Red Blood Count 3.64 10^6 /uL (3.70-4.87); Red Cell Distribution Width 15 % (10-15); White Blood Count 11.8 10^3/uL (3.5-10.8)
[2021-01-20 07:18] LABS: BUN/Creatinine Ratio 18.2 (8-20); Calcium 8.9 mg/dL (8.6-10.3); EGFR Non-African American 155.3 (>60); Potassium 3.9 mmol/L (3.5-5.0)
[2021-01-20 07:54] LABS: ABS Basophils 0.1 10^3/ul (0-0.2); ABS Eosinophils 0.2 10^3/ul (0-0.6); ABS Lymphocytes 1.9 10^3/ul (1.0-4.8); ABS Neutrophils 8.6 10^3/ul (1.5-7.7); Eosinophil % 2.1 %; Lymphocyte % 16.1 %; Nucleated Red Blood Cells % 0.1
[2021-01-20] MEDS: Venlafaxine XR 75 mg PO SCH (08:58)
[2021-01-20] MEDS: Buprenorp/Nalox 4-1 MG FILM SL FILM SCH (08:59)
[2021-01-20] MEDS: Lidocaine PATCH 5% PATCH TRANSDERM PRN (13:55)
[2021-01-20] MEDS ORDERED: Morphine 2 MG/ML SYRINGE IV ONE (21:00)
[2021-01-20] MEDS: Lidocaine Patch REMOVE PATCH PATCH OFF SCH (22:21)
[2021-01-21] MEDS: Morphine ORAL.SOLN 10 mg 2 mg/ml UDC 5 ml (10 mg) PO PRN ×4 (01:22→23:17)
[2021-01-21] MEDS: ceFAZolin 2 GM PREMIX 2 GM/50 ML BAG IVPB SCH ×3 (05:25→22:21)
[2021-01-21] MEDS: Heparin 5000 UNITS/ML 1 mL VIAL SUBCUT SCH ×3 (05:27→20:19)
[2021-01-21] MEDS: Nicotine GUM 4MG FRUIT FLAVOR PO PRN ×2 (06:01→16:32)
[2021-01-21] MEDS: Venlafaxine XR 75 mg PO SCH (07:49)
[2021-01-21] MEDS: Buprenorp/Nalox 4-1 MG FILM SL FILM SCH (07:52)
[2021-01-21] MEDS: Morphine 2 MG/ML SYRINGE IV PRN ×2 (09:34→20:36)
[2021-01-21] MEDS: Lidocaine PATCH 5% PATCH TRANSDERM PRN (12:25)
[2021-01-21] MEDS: Lidocaine Patch REMOVE PATCH PATCH OFF SCH (20:20)
[2021-01-22] MEDS ORDERED: Morphine 2 MG/ML SYRINGE IV ONE ×3 (02:51→20:42)
[2021-01-22] MEDS: ceFAZolin 2 GM PREMIX 2 GM/50 ML BAG IVPB SCH ×3 (05:26→22:22)
[2021-01-22] MEDS: Heparin 5000 UNITS/ML 1 mL VIAL SUBCUT SCH ×3 (05:27→20:37)
[2021-01-22] MEDS: Morphine ORAL.SOLN 10 mg 2 mg/ml UDC 5 ml (10 mg) PO PRN ×4 (07:19→20:36)
[2021-01-22] MEDS: Buprenorp/Nalox 4-1 MG FILM SL FILM SCH (07:23)
[2021-01-22] MEDS: Venlafaxine XR 75 mg PO SCH (07:23)
[2021-01-22] MEDS: Lidocaine PATCH 5% PATCH TRANSDERM PRN (07:29)
[2021-01-22] MEDS: Nicotine GUM 4MG FRUIT FLAVOR PO PRN ×2 (11:39→16:00)
[2021-01-22] MEDS: Lidocaine Patch REMOVE PATCH PATCH OFF SCH (20:43)
[2021-01-23] MEDS: Morphine ORAL.SOLN 10 mg 2 mg/ml UDC 5 ml (10 mg) PO PRN ×5 (01:09→19:25)
[2021-01-23] MEDS: Heparin 5000 UNITS/ML 1 mL VIAL SUBCUT SCH ×3 (05:00→21:17)
[2021-01-23] MEDS: ceFAZolin 2 GM PREMIX 2 GM/50 ML BAG IVPB SCH ×3 (06:43→21:17)
[2021-01-23] MEDS: Venlafaxine XR 75 mg PO SCH (07:13)
[2021-01-23] MEDS: Buprenorp/Nalox 4-1 MG FILM SL FILM SCH (07:13)
[2021-01-23] MEDS: Nicotine GUM 4MG FRUIT FLAVOR PO PRN (09:57)
[2021-01-23] MEDS ORDERED: Morphine 2 MG/ML SYRINGE IV PRN (14:49)
[2021-01-23] MEDS ORDERED: Polyethylene Glycol 3350 17 GM PACKET PO PRN (14:50)
[2021-01-23] MEDS: Morphine 2 MG/ML SYRINGE IV PRN ×2 (15:09→23:12)
[2021-01-23] MEDS: Senna TAB 8.6 mg TAB PO SCH (21:16)
[2021-01-23] MEDS: Lidocaine Patch REMOVE PATCH PATCH OFF SCH (21:17)
[2021-01-23] MEDS: Lidocaine PATCH 5% PATCH TRANSDERM PRN (21:34)
[2021-01-24] MEDS: Morphine ORAL.SOLN 10 mg 2 mg/ml UDC 5 ml (10 mg) PO PRN ×5 (03:30→20:47)
[2021-01-24] MEDS: Heparin 5000 UNITS/ML 1 mL VIAL SUBCUT SCH ×2 (05:48→13:16)
[2021-01-24] MEDS: ceFAZolin 2 GM PREMIX 2 GM/50 ML BAG IVPB SCH ×3 (05:49→23:09)
[2021-01-24] MEDS: Venlafaxine XR 75 mg PO SCH (07:40)
[2021-01-24] MEDS: Buprenorp/Nalox 4-1 MG FILM SL FILM SCH (07:41)
[2021-01-24] MEDS: Morphine 2 MG/ML SYRINGE IV PRN ×2 (07:45→16:23)
[2021-01-24] MEDS: Senna TAB 8.6 mg TAB PO SCH (20:04)
[2021-01-24] MEDS: Lidocaine Patch REMOVE PATCH PATCH OFF SCH (20:14)
[2021-01-24] MEDS ORDERED: Enoxaparin 40 MG/0.4 ML SYR SUBCUT SCH (21:00)
[2021-01-25] MEDS: Morphine 2 MG/ML SYRINGE IV PRN ×2 (00:44→11:37)
[2021-01-25] MEDS: Morphine ORAL.SOLN 10 mg 2 mg/ml UDC 5 ml (10 mg) PO PRN ×2 (03:27→08:01)
[2021-01-25] MEDS: ceFAZolin 2 GM PREMIX 2 GM/50 ML BAG IVPB SCH (06:26)
[2021-01-25] MEDS: Buprenorp/Nalox 4-1 MG FILM SL FILM SCH (08:07)
[2021-01-25] MEDS: Venlafaxine XR 75 mg PO SCH (08:07)
[2021-01-25] MEDS: Nicotine GUM 4MG FRUIT FLAVOR PO PRN (10:00)
[2021-01-25 11:21] VITALS: BP 130/95
== END 2021-01-25 11:32 | disposition swing bed (61) | DRG 720 ==
LOC: ED 05:52 → MED 13:21 → MEDTELE 01-17 22:25
PROVIDERS: ADMIT Internal Medicine; ATTEND Pediatrics

== ENCOUNTER 2021-01-25 12:00 | Inpatient (IN) ==
[2021-01-25] MEDS ORDERED: ceFAZolin VIAL 2 GM in NS 0.9% 100 ml BAG 100 ML IVPB SCH (14:00)
[2021-01-25] MEDS: Morphine ORAL.SOLN 10 mg 2 mg/ml UDC 5 ml (10 mg) PO PRN ×2 (14:24→20:12)
[2021-01-25] MEDS: Lidocaine PATCH 5% PATCH TRANSDERM SCH (14:27)
[2021-01-25] MEDS: Nicotine GUM 4MG FRUIT FLAVOR PO PRN (14:27)
[2021-01-25] MEDS: ceFAZolin 2 GM PREMIX 2 GM/50 ML BAG IVPB SCH ×2 (14:28→22:00)
[2021-01-25] MEDS ORDERED: Morphine 2 MG/ML SYRINGE IV ONE (18:03)
[2021-01-25] MEDS: Enoxaparin 40 MG/0.4 ML SYR SUBCUT SCH (20:14)
[2021-01-25] MEDS: Lidocaine Patch REMOVE PATCH PATCH OFF SCH (21:48)
[2021-01-26] MEDS: Morphine ORAL.SOLN 10 mg 2 mg/ml UDC 5 ml (10 mg) PO PRN ×5 (05:30→21:58)
[2021-01-26] MEDS: ceFAZolin 2 GM PREMIX 2 GM/50 ML BAG IVPB SCH ×3 (05:33→22:08)
[2021-01-26] MEDS ORDERED: Pneumococcal Vac 23-Polyvalent IM ONE (09:00)
[2021-01-26] MEDS ORDERED: Influenza VAC *QUAD* 2020-21* 0.5 ML SYRINGE IM ONE (09:00)
[2021-01-26] MEDS: Venlafaxine XR 75 mg PO SCH (10:03)
[2021-01-26] MEDS: Lidocaine PATCH 5% PATCH TRANSDERM SCH (10:17)
[2021-01-26] MEDS: Buprenorp/Nalox 4-1 MG FILM SL FILM SCH (11:03)
[2021-01-26] MEDS: Nicotine GUM 4MG FRUIT FLAVOR PO PRN ×2 (11:03→14:17)
[2021-01-26] MEDS: Lidocaine Patch REMOVE PATCH PATCH OFF SCH (21:57)
[2021-01-26] MEDS: Enoxaparin 40 MG/0.4 ML SYR SUBCUT SCH (22:00)
[2021-01-27] MEDS: Morphine ORAL.SOLN 10 mg 2 mg/ml UDC 5 ml (10 mg) PO PRN ×4 (02:30→20:22)
[2021-01-27] MEDS: ceFAZolin 2 GM PREMIX 2 GM/50 ML BAG IVPB SCH ×3 (05:36→20:24)
[2021-01-27 05:38] LABS: ABS Basophils 0.1 10^3/ul (0-0.2); ABS Eosinophils 0.2 10^3/ul (0-0.6); ABS Lymphocytes 1.5 10^3/ul (1.0-4.8); ABS Monocytes 0.6 10^3/ul (0-0.8); ABS Neutrophils 7.7 10^3/ul (1.5-7.7); Eosinophil % 2.1 %; Hematocrit 35 % (35-47); Hemoglobin 11.8 g/dL (12.0-16.0); Lymphocyte % 14.6 %; Mean Corpuscular HGB Conc 34 g/dL (31-36); Mean Corpuscular Hemoglobin 30 pg (27-31); Mean Corpuscular Volume 90 fL (80-97); Mean Platelet Volume 6.6 fL (7.4-10.4); Nucleated Red Blood Cells % 0.1; Platelet Count 715 10^3/uL (150-450); Red Blood Count 3.88 10^6 /uL (3.70-4.87); Red Cell Distribution Width 14 % (10-15)
[2021-01-27 05:56] LABS: Albumin 3.5 g/dL (3.2-5.2); Albumin/Globulin Ratio 0.9 (1-3); BUN/Creatinine Ratio 25.9 (8-20); C Reactive Protein 58.46 mg/L (<8.01); Calcium 9.4 mg/dL (8.6-10.3); EGFR African American 136.6 (>60); EGFR Non-African American 112.9 (>60); Globulin 4.1 g/dL (2-4); Potassium 4.2 mmol/L (3.5-5.0); Total Bilirubin 0.6 mg/dL (0.2-1.0); Total Protein 7.6 g/dL (6.4-8.9)
[2021-01-27] MEDS: Lidocaine PATCH 5% PATCH TRANSDERM SCH (10:01)
[2021-01-27] MEDS: ATOMOXETINE 40 MG PO SCH (10:01)
[2021-01-27] MEDS: Buprenorp/Nalox 4-1 MG FILM SL FILM SCH (10:01)
[2021-01-27] MEDS: Venlafaxine XR 75 mg PO SCH (10:02)
[2021-01-27] MEDS: Nicotine GUM 4MG FRUIT FLAVOR PO PRN (15:16)
[2021-01-27] MEDS: Polyethylene Glycol 3350 17 GM PACKET PO PRN (16:02)
[2021-01-27] MEDS: Senna TAB 8.6 mg TAB PO PRN (16:02)
[2021-01-27] MEDS: Enoxaparin 40 MG/0.4 ML SYR SUBCUT SCH (20:23)
[2021-01-27] MEDS: Lidocaine Patch REMOVE PATCH PATCH OFF SCH (20:25)
[2021-01-28] MEDS: Morphine ORAL.SOLN 10 mg 2 mg/ml UDC 5 ml (10 mg) PO PRN ×4 (06:07→20:04)
[2021-01-28] MEDS: ceFAZolin 2 GM PREMIX 2 GM/50 ML BAG IVPB SCH ×3 (06:09→20:04)
[2021-01-28] MEDS: Venlafaxine XR 75 mg PO SCH (08:34)
[2021-01-28] MEDS: ATOMOXETINE 40 MG PO SCH (08:35)
[2021-01-28] MEDS: Buprenorp/Nalox 4-1 MG FILM SL FILM SCH (08:35)
[2021-01-28] MEDS: Senna TAB 8.6 mg TAB PO PRN ×2 (08:41→20:03)
[2021-01-28] MEDS: Polyethylene Glycol 3350 17 GM PACKET PO PRN (08:41)
[2021-01-28] MEDS: Nicotine GUM 4MG FRUIT FLAVOR PO PRN ×3 (08:41→20:05)
[2021-01-28] MEDS: Lidocaine PATCH 5% PATCH TRANSDERM SCH (09:05)
[2021-01-28] MEDS: Enoxaparin 40 MG/0.4 ML SYR SUBCUT SCH (20:02)
[2021-01-28] MEDS: Lidocaine Patch REMOVE PATCH PATCH OFF SCH (20:04)
[2021-01-29] MEDS: Morphine ORAL.SOLN 10 mg 2 mg/ml UDC 5 ml (10 mg) PO PRN ×5 (01:06→21:32)
[2021-01-29] MEDS: ceFAZolin 2 GM PREMIX 2 GM/50 ML BAG IVPB SCH ×3 (06:22→21:33)
[2021-01-29] MEDS: Venlafaxine XR 75 mg PO SCH (08:33)
[2021-01-29] MEDS: Buprenorp/Nalox 4-1 MG FILM SL FILM SCH (08:35)
[2021-01-29] MEDS: Lidocaine PATCH 5% PATCH TRANSDERM SCH (08:36)
[2021-01-29] MEDS: Senna TAB 8.6 mg TAB PO PRN (08:45)
[2021-01-29] MEDS: Polyethylene Glycol 3350 17 GM PACKET PO PRN (08:45)
[2021-01-29] MEDS: Nicotine GUM 4MG FRUIT FLAVOR PO PRN ×4 (08:46→21:32)
[2021-01-29] MEDS: ATOMOXETINE 40 MG PO SCH (08:47)
[2021-01-29] MEDS ORDERED: Buffered Lidocaine 1% SYRIN 1 ml INTRADERM ONE (13:11)
[2021-01-29] MEDS ORDERED: HYDROmorphone 1 MG/1 ML SYRINGE IV SLOW PU ONE (17:07)
[2021-01-29] MEDS: Enoxaparin 40 MG/0.4 ML SYR SUBCUT SCH (21:31)
[2021-01-29] MEDS: Lidocaine Patch REMOVE PATCH PATCH OFF SCH (21:32)
[2021-01-30] MEDS: Morphine ORAL.SOLN 10 mg 2 mg/ml UDC 5 ml (10 mg) PO PRN ×4 (05:55→18:34)
[2021-01-30] MEDS: ceFAZolin 2 GM PREMIX 2 GM/50 ML BAG IVPB SCH ×3 (05:56→22:30)
[2021-01-30] MEDS: Polyethylene Glycol 3350 17 GM PACKET PO PRN (09:20)
[2021-01-30] MEDS: ATOMOXETINE 40 MG PO SCH (09:20)
[2021-01-30] MEDS: Buprenorp/Nalox 4-1 MG FILM SL FILM SCH (09:21)
[2021-01-30] MEDS: Senna TAB 8.6 mg TAB PO PRN (09:21)
[2021-01-30] MEDS: Venlafaxine XR 75 mg PO SCH (09:22)
[2021-01-30] MEDS: Nicotine GUM 4MG FRUIT FLAVOR PO PRN ×4 (09:23→17:36)
[2021-01-30] MEDS: Lidocaine PATCH 5% PATCH TRANSDERM SCH (09:23)
[2021-01-30] MEDS: Enoxaparin 40 MG/0.4 ML SYR SUBCUT SCH (20:13)
[2021-01-30] MEDS: Lidocaine Patch REMOVE PATCH PATCH OFF SCH (22:29)
[2021-01-31] MEDS: ceFAZolin 2 GM PREMIX 2 GM/50 ML BAG IVPB SCH ×3 (04:48→22:07)
[2021-01-31] MEDS: Lidocaine PATCH 5% PATCH TRANSDERM SCH (10:12)
[2021-01-31] MEDS: Venlafaxine XR 75 mg PO SCH (10:13)
[2021-01-31] MEDS: ATOMOXETINE 40 MG PO SCH (10:16)
[2021-01-31] MEDS: Buprenorp/Nalox 4-1 MG FILM SL FILM SCH (10:18)
[2021-01-31] MEDS: Nicotine GUM 4MG FRUIT FLAVOR PO PRN ×4 (10:44→21:58)
[2021-01-31] MEDS: Senna TAB 8.6 mg TAB PO PRN (18:23)
[2021-01-31] MEDS: Enoxaparin 40 MG/0.4 ML SYR SUBCUT SCH (20:01)
[2021-01-31] MEDS: Lidocaine Patch REMOVE PATCH PATCH OFF SCH (21:59)
[2021-01-31] MEDS: Polyethylene Glycol 3350 17 GM PACKET PO PRN (22:07)
[2021-02-01] MEDS: ceFAZolin 2 GM PREMIX 2 GM/50 ML BAG IVPB SCH ×3 (05:31→22:34)
[2021-02-01] MEDS: Venlafaxine XR 75 mg PO SCH (09:20)
[2021-02-01] MEDS: ATOMOXETINE 40 MG PO SCH (09:23)
[2021-02-01] MEDS: Buprenorp/Nalox 4-1 MG FILM SL FILM SCH (09:26)
[2021-02-01] MEDS: Lidocaine PATCH 5% PATCH TRANSDERM SCH (09:26)
[2021-02-01] MEDS: Nicotine GUM 4MG FRUIT FLAVOR PO PRN ×3 (09:27→17:12)
[2021-02-01] MEDS: Senna TAB 8.6 mg TAB PO PRN (20:30)
[2021-02-01] MEDS: Nystatin TOP POWDER 15 GM BTL TOPICAL SCH (20:32)
[2021-02-01] MEDS: Enoxaparin 40 MG/0.4 ML SYR SUBCUT SCH (20:32)
[2021-02-01] MEDS: Lidocaine Patch REMOVE PATCH PATCH OFF SCH (20:33)
[2021-02-01] MEDS: Polyethylene Glycol 3350 17 GM PACKET PO PRN (20:44)
[2021-02-01] MEDS: Magnesium Hydroxide LIQ 30 ML UDC PO PRN (22:33)
[2021-02-02] MEDS: ceFAZolin 2 GM PREMIX 2 GM/50 ML BAG IVPB SCH ×3 (05:10→22:08)
[2021-02-02] MEDS: Nicotine GUM 4MG FRUIT FLAVOR PO PRN ×4 (06:55→17:43)
[2021-02-02] MEDS: Venlafaxine XR 75 mg PO SCH (10:00)
[2021-02-02] MEDS: Nystatin TOP POWDER 15 GM BTL TOPICAL SCH ×2 (10:02→22:16)
[2021-02-02] MEDS: Buprenorp/Nalox 4-1 MG FILM SL FILM SCH (10:02)
[2021-02-02] MEDS: Lidocaine PATCH 5% PATCH TRANSDERM SCH (10:06)
[2021-02-02] MEDS: ATOMOXETINE 40 MG PO SCH (10:09)
[2021-02-02] MEDS: Lidocaine Patch REMOVE PATCH PATCH OFF SCH (22:02)
[2021-02-02] MEDS: Enoxaparin 40 MG/0.4 ML SYR SUBCUT SCH (22:05)
[2021-02-02] MEDS: Polyethylene Glycol 3350 17 GM PACKET PO PRN (22:05)
[2021-02-02] MEDS: Senna TAB 8.6 mg TAB PO PRN (22:05)
[2021-02-03] MEDS: ceFAZolin 2 GM PREMIX 2 GM/50 ML BAG IVPB SCH ×3 (05:26→22:19)
[2021-02-03] MEDS: Venlafaxine XR 75 mg PO SCH (08:59)
[2021-02-03] MEDS: Nicotine GUM 4MG FRUIT FLAVOR PO PRN ×4 (09:00→20:15)
[2021-02-03] MEDS: ATOMOXETINE 40 MG PO SCH (09:01)
[2021-02-03] MEDS: Buprenorp/Nalox 4-1 MG FILM SL FILM SCH (09:02)
[2021-02-03] MEDS: Lidocaine PATCH 5% PATCH TRANSDERM SCH (09:02)
[2021-02-03] MEDS: Nystatin TOP POWDER 15 GM BTL TOPICAL SCH ×2 (09:04→20:17)
[2021-02-03] MEDS: Enoxaparin 40 MG/0.4 ML SYR SUBCUT SCH (20:15)
[2021-02-03] MEDS: Lidocaine Patch REMOVE PATCH PATCH OFF SCH (20:16)
[2021-02-04] MEDS: ceFAZolin 2 GM PREMIX 2 GM/50 ML BAG IVPB SCH ×3 (05:13→21:47)
[2021-02-04] MEDS: Venlafaxine XR 75 mg PO SCH (09:15)
[2021-02-04] MEDS: ATOMOXETINE 40 MG PO SCH (09:16)
[2021-02-04] MEDS: Buprenorp/Nalox 4-1 MG FILM SL FILM SCH (09:17)
[2021-02-04] MEDS: Lidocaine PATCH 5% PATCH TRANSDERM SCH (09:19)
[2021-02-04] MEDS: Nystatin TOP POWDER 15 GM BTL TOPICAL SCH ×2 (09:20→21:23)
[2021-02-04] MEDS: Lidocaine Patch REMOVE PATCH PATCH OFF SCH (21:19)
[2021-02-04] MEDS: Senna TAB 8.6 mg TAB PO PRN (21:33)
[2021-02-04] MEDS: Nicotine GUM 4MG FRUIT FLAVOR PO PRN (21:34)
[2021-02-04] MEDS: Enoxaparin 40 MG/0.4 ML SYR SUBCUT SCH (21:37)
[2021-02-04] MEDS: Polyethylene Glycol 3350 17 GM PACKET PO PRN (21:44)
[2021-02-05] MEDS: ceFAZolin 2 GM PREMIX 2 GM/50 ML BAG IVPB SCH ×3 (05:45→22:04)
[2021-02-05] MEDS: Nicotine GUM 4MG FRUIT FLAVOR PO PRN ×3 (07:34→17:11)
[2021-02-05] MEDS: Venlafaxine XR 75 mg PO SCH (08:51)
[2021-02-05] MEDS: ATOMOXETINE 40 MG PO SCH (08:53)
[2021-02-05] MEDS: Buprenorp/Nalox 4-1 MG FILM SL FILM SCH (08:53)
[2021-02-05] MEDS: Lidocaine PATCH 5% PATCH TRANSDERM SCH (08:54)
[2021-02-05] MEDS: Nystatin TOP POWDER 15 GM BTL TOPICAL SCH ×2 (08:55→23:46)
[2021-02-05] MEDS: Enoxaparin 40 MG/0.4 ML SYR SUBCUT SCH (22:03)
[2021-02-05] MEDS: Lidocaine Patch REMOVE PATCH PATCH OFF SCH (23:46)
[2021-02-06] MEDS: ceFAZolin 2 GM PREMIX 2 GM/50 ML BAG IVPB SCH ×3 (05:42→20:24)
[2021-02-06] MEDS: ATOMOXETINE 40 MG PO SCH (07:52)
[2021-02-06] MEDS: Venlafaxine XR 75 mg PO SCH (07:52)
[2021-02-06] MEDS: Buprenorp/Nalox 4-1 MG FILM SL FILM SCH (07:53)
[2021-02-06] MEDS: Lidocaine PATCH 5% PATCH TRANSDERM SCH (07:53)
[2021-02-06] MEDS: Nystatin TOP POWDER 15 GM BTL TOPICAL SCH ×2 (07:59→20:26)
[2021-02-06] MEDS: Nicotine GUM 4MG FRUIT FLAVOR PO PRN ×2 (09:24→16:25)
[2021-02-06 11:18] LABS: ABS Basophils 0.1 10^3/ul (0-0.2); ABS Eosinophils 0.2 10^3/ul (0-0.6); ABS Lymphocytes 1.1 10^3/ul (1.0-4.8); ABS Monocytes 0.6 10^3/ul (0-0.8); Eosinophil % 3.2 %; Hematocrit 35 % (35-47); Hemoglobin 11.7 g/dL (12.0-16.0); Lymphocyte % 19.2 %; Mean Corpuscular HGB Conc 33 g/dL (31-36); Mean Corpuscular Hemoglobin 30 pg (27-31); Mean Corpuscular Volume 90 fL (80-97); Mean Platelet Volume 7.2 fL (7.4-10.4); Platelet Count 394 10^3/uL (150-450); Red Cell Distribution Width 14 % (10-15); White Blood Count 5.9 10^3/uL (3.5-10.8)
[2021-02-06 11:52] LABS: Albumin 3.7 g/dL (3.2-5.2); Albumin/Globulin Ratio 0.9 (1-3); BUN/Creatinine Ratio 19.3 (8-20); C Reactive Protein 18.81 mg/L (<8.01); Calcium 9.4 mg/dL (8.6-10.3); EGFR African American 139.4 (>60); EGFR Non-African American 115.2 (>60); Total Bilirubin 0.3 mg/dL (0.2-1.0); Total Protein 7.7 g/dL (6.4-8.9)
[2021-02-06] MEDS: Enoxaparin 40 MG/0.4 ML SYR SUBCUT SCH (20:24)
[2021-02-06] MEDS: Magnesium Hydroxide LIQ 30 ML UDC PO PRN (20:24)
[2021-02-06] MEDS: Lidocaine Patch REMOVE PATCH PATCH OFF SCH (20:25)
[2021-02-07] MEDS: ceFAZolin 2 GM PREMIX 2 GM/50 ML BAG IVPB SCH ×3 (04:37→20:23)
[2021-02-07] MEDS: ATOMOXETINE 40 MG PO SCH (09:39)
[2021-02-07] MEDS: Buprenorp/Nalox 4-1 MG FILM SL FILM SCH (09:39)
[2021-02-07] MEDS: Venlafaxine XR 75 mg PO SCH (09:43)
[2021-02-07] MEDS: Lidocaine PATCH 5% PATCH TRANSDERM SCH (09:45)
[2021-02-07] MEDS: Nicotine GUM 4MG FRUIT FLAVOR PO PRN ×2 (09:56→14:33)
[2021-02-07] MEDS: Nystatin TOP POWDER 15 GM BTL TOPICAL SCH ×2 (10:20→20:22)
[2021-02-07] MEDS: Magnesium Hydroxide LIQ 30 ML UDC PO PRN ×2 (14:35→20:19)
[2021-02-07] MEDS: Enoxaparin 40 MG/0.4 ML SYR SUBCUT SCH (20:18)
[2021-02-07] MEDS: Lidocaine Patch REMOVE PATCH PATCH OFF SCH (20:22)
[2021-02-08] MEDS: ceFAZolin 2 GM PREMIX 2 GM/50 ML BAG IVPB SCH ×3 (05:01→22:01)
[2021-02-08] MEDS: Lidocaine PATCH 5% PATCH TRANSDERM SCH (08:23)
[2021-02-08] MEDS: Venlafaxine XR 75 mg PO SCH (08:24)
[2021-02-08] MEDS: ATOMOXETINE 40 MG PO SCH (08:25)
[2021-02-08] MEDS: Buprenorp/Nalox 4-1 MG FILM SL FILM SCH (08:26)
[2021-02-08] MEDS: Nystatin TOP POWDER 15 GM BTL TOPICAL SCH ×2 (08:27→20:40)
[2021-02-08] MEDS: Nicotine GUM 4MG FRUIT FLAVOR PO PRN ×4 (08:29→20:34)
[2021-02-08] MEDS: Magnesium Hydroxide LIQ 30 ML UDC PO PRN (20:34)
[2021-02-08] MEDS: Enoxaparin 40 MG/0.4 ML SYR SUBCUT SCH (20:37)
[2021-02-08] MEDS: Lidocaine Patch REMOVE PATCH PATCH OFF SCH (20:38)
[2021-02-09] MEDS: ceFAZolin 2 GM PREMIX 2 GM/50 ML BAG IVPB SCH ×3 (05:23→21:42)
[2021-02-09] MEDS: Buprenorp/Nalox 4-1 MG FILM SL FILM SCH (07:11)
[2021-02-09] MEDS: Nicotine GUM 4MG FRUIT FLAVOR PO PRN ×6 (07:11→21:42)
[2021-02-09] MEDS: Lidocaine PATCH 5% PATCH TRANSDERM SCH (08:52)
[2021-02-09] MEDS: Venlafaxine XR 75 mg PO SCH (08:53)
[2021-02-09] MEDS: Polyethylene Glycol 3350 17 GM PACKET PO PRN (08:55)
[2021-02-09] MEDS: ATOMOXETINE 40 MG PO SCH (08:55)
[2021-02-09] MEDS: Nystatin TOP POWDER 15 GM BTL TOPICAL SCH ×2 (08:58→21:47)
[2021-02-09] MEDS ORDERED: COVID-19 VACCINE, MRNA(PFIZER)/PF 30 MCG/0.3 ML IM ONE (10:45)
[2021-02-09] MEDS ORDERED: Mineral Oil ENEMA 118 ML/BOTTLE BOTTLE PR ONE (15:05)
[2021-02-09] MEDS: Enoxaparin 40 MG/0.4 ML SYR SUBCUT SCH (21:44)
[2021-02-09] MEDS: Lidocaine Patch REMOVE PATCH PATCH OFF SCH (21:47)
[2021-02-10] MEDS: ceFAZolin 2 GM PREMIX 2 GM/50 ML BAG IVPB SCH ×3 (05:32→21:57)
[2021-02-10] MEDS: Nicotine GUM 4MG FRUIT FLAVOR PO PRN ×6 (07:12→21:55)
[2021-02-10] MEDS: Venlafaxine XR 75 mg PO SCH (09:29)
[2021-02-10] MEDS: Buprenorp/Nalox 4-1 MG FILM SL FILM SCH (09:31)
[2021-02-10] MEDS: Lidocaine PATCH 5% PATCH TRANSDERM SCH (09:31)
[2021-02-10] MEDS: Nystatin TOP POWDER 15 GM BTL TOPICAL SCH ×2 (09:34→21:58)
[2021-02-10] MEDS: ATOMOXETINE 40 MG PO SCH (09:41)
[2021-02-10] MEDS ORDERED: COVID-19 VACCINE, MRNA(PFIZER)/PF 30 MCG/0.3 ML IM ONE (10:00)
[2021-02-10] MEDS: Senna TAB 8.6 mg TAB PO PRN (21:56)
[2021-02-10] MEDS: Enoxaparin 40 MG/0.4 ML SYR SUBCUT SCH (21:57)
[2021-02-10] MEDS: Polyethylene Glycol 3350 17 GM PACKET PO PRN (21:57)
[2021-02-10] MEDS: Lidocaine Patch REMOVE PATCH PATCH OFF SCH (21:57)
[2021-02-11] MEDS: ceFAZolin 2 GM PREMIX 2 GM/50 ML BAG IVPB SCH ×3 (05:31→21:33)
[2021-02-11] MEDS: Venlafaxine XR 75 mg PO SCH (08:26)
[2021-02-11] MEDS: ATOMOXETINE 40 MG PO SCH (08:26)
[2021-02-11] MEDS: Buprenorp/Nalox 4-1 MG FILM SL FILM SCH (08:27)
[2021-02-11] MEDS: Lidocaine PATCH 5% PATCH TRANSDERM SCH (08:27)
[2021-02-11] MEDS: Nystatin TOP POWDER 15 GM BTL TOPICAL SCH ×2 (08:32→20:20)
[2021-02-11] MEDS: Nicotine GUM 4MG FRUIT FLAVOR PO PRN ×5 (09:06→20:33)
[2021-02-11] MEDS: Polyethylene Glycol 3350 17 GM PACKET PO PRN (20:33)
[2021-02-11] MEDS: Senna TAB 8.6 mg TAB PO PRN (20:34)
[2021-02-11] MEDS: Enoxaparin 40 MG/0.4 ML SYR SUBCUT SCH (20:36)
[2021-02-11] MEDS: Lidocaine Patch REMOVE PATCH PATCH OFF SCH (20:39)
[2021-02-12] MEDS: ceFAZolin 2 GM PREMIX 2 GM/50 ML BAG IVPB SCH ×3 (06:06→22:06)
[2021-02-12] MEDS: Venlafaxine XR 75 mg PO SCH (09:13)
[2021-02-12] MEDS: ATOMOXETINE 40 MG PO SCH (09:13)
[2021-02-12] MEDS: Nystatin TOP POWDER 15 GM BTL TOPICAL SCH ×3 (09:16→21:30)
[2021-02-12] MEDS: Buprenorp/Nalox 4-1 MG FILM SL FILM SCH (09:16)
[2021-02-12] MEDS: Nicotine GUM 4MG FRUIT FLAVOR PO PRN ×3 (09:23→17:36)
[2021-02-12] MEDS: Lidocaine PATCH 5% PATCH TRANSDERM SCH (10:16)
[2021-02-12] MEDS: Magnesium Hydroxide LIQ 30 ML UDC PO PRN (14:33)
[2021-02-12] MEDS: Polyethylene Glycol 3350 17 GM PACKET PO PRN (17:48)
[2021-02-12] MEDS: Senna TAB 8.6 mg TAB PO PRN (22:03)
[2021-02-12] MEDS: Enoxaparin 40 MG/0.4 ML SYR SUBCUT SCH (22:04)
[2021-02-12] MEDS: Lidocaine Patch REMOVE PATCH PATCH OFF SCH (22:05)
[2021-02-13] MEDS: ceFAZolin 2 GM PREMIX 2 GM/50 ML BAG IVPB SCH ×3 (05:50→21:14)
[2021-02-13] MEDS: ATOMOXETINE 40 MG PO SCH (09:23)
[2021-02-13] MEDS: Venlafaxine XR 75 mg PO SCH (09:23)
[2021-02-13] MEDS: Nicotine GUM 4MG FRUIT FLAVOR PO PRN ×4 (09:23→21:12)
[2021-02-13] MEDS: Buprenorp/Nalox 4-1 MG FILM SL FILM SCH (09:23)
[2021-02-13] MEDS: Lidocaine PATCH 5% PATCH TRANSDERM SCH (09:23)
[2021-02-13] MEDS: Nystatin TOP POWDER 15 GM BTL TOPICAL SCH ×2 (09:24→22:04)
[2021-02-13 10:16] LABS: ABS Eosinophils 0.2 10^3/ul (0-0.6); ABS Monocytes 0.5 10^3/ul (0-0.8); ABS Neutrophils 4.1 10^3/ul (1.5-7.7); Eosinophil % 2.9 %; Hematocrit 37 % (35-47); Hemoglobin 12.2 g/dL (12.0-16.0); Lymphocyte % 17.2 %; Mean Corpuscular HGB Conc 33 g/dL (31-36); Mean Corpuscular Hemoglobin 30 pg (27-31); Mean Corpuscular Volume 90 fL (80-97); Mean Platelet Volume 7.1 fL (7.4-10.4); Platelet Count 334 10^3/uL (150-450); Red Blood Count 4.08 10^6 /uL (3.70-4.87); Red Cell Distribution Width 14 % (10-15); White Blood Count 5.8 10^3/uL (3.5-10.8)
[2021-02-13 10:30] LABS: Albumin 3.6 g/dL (3.2-5.2); Albumin/Globulin Ratio 0.9 (1-3); BUN/Creatinine Ratio 20.3 (8-20); C Reactive Protein 19.13 mg/L (<8.01); Calcium 9.2 mg/dL (8.6-10.3); EGFR Non-African American 110.7 (>60); Globulin 3.9 g/dL (2-4); Total Bilirubin 0.4 mg/dL (0.2-1.0); Total Protein 7.5 g/dL (6.4-8.9)
[2021-02-13 13:45] LABS: Chlamydia trachomatis NAA Negative (Negative); Neisseria gonorrhoeae (GC) NAA Negative (Negative)
[2021-02-13] MEDS: Nicotine PATCH 21 MG/24 HR PATCH TRANSDERM SCH (17:32)
[2021-02-13] MEDS: Enoxaparin 40 MG/0.4 ML SYR SUBCUT SCH (19:46)
[2021-02-13] MEDS: Lidocaine Patch REMOVE PATCH PATCH OFF SCH (20:44)
[2021-02-14] MEDS: ceFAZolin 2 GM PREMIX 2 GM/50 ML BAG IVPB SCH ×3 (05:57→23:07)
[2021-02-14] MEDS: Nicotine GUM 4MG FRUIT FLAVOR PO PRN ×3 (09:22→19:12)
[2021-02-14] MEDS: Venlafaxine XR 75 mg PO SCH (09:22)
[2021-02-14] MEDS: ATOMOXETINE 40 MG PO SCH (09:24)
[2021-02-14] MEDS: Buprenorp/Nalox 4-1 MG FILM SL FILM SCH (09:27)
[2021-02-14] MEDS: Lidocaine PATCH 5% PATCH TRANSDERM SCH (09:27)
[2021-02-14] MEDS: Nicotine PATCH 21 MG/24 HR PATCH TRANSDERM SCH (10:01)
[2021-02-14] MEDS: Nystatin TOP POWDER 15 GM BTL TOPICAL SCH (10:02)
[2021-02-14] MEDS: Enoxaparin 40 MG/0.4 ML SYR SUBCUT SCH (19:11)
[2021-02-14] MEDS: Lidocaine Patch REMOVE PATCH PATCH OFF SCH ×2 (20:03→20:07)
[2021-02-15] MEDS: ceFAZolin 2 GM PREMIX 2 GM/50 ML BAG IVPB SCH ×3 (05:13→22:00)
[2021-02-15] MEDS: Nicotine GUM 4MG FRUIT FLAVOR PO PRN ×2 (09:20→13:43)
[2021-02-15] MEDS: ATOMOXETINE 40 MG PO SCH (09:20)
[2021-02-15] MEDS: Venlafaxine XR 75 mg PO SCH (09:21)
[2021-02-15] MEDS: Buprenorp/Nalox 4-1 MG FILM SL FILM SCH (09:21)
[2021-02-15] MEDS: Nicotine PATCH 21 MG/24 HR PATCH TRANSDERM SCH (09:22)
[2021-02-15] MEDS: Lidocaine PATCH 5% PATCH TRANSDERM SCH (09:22)
[2021-02-15] MEDS: Magnesium Hydroxide LIQ 30 ML UDC PO PRN (14:26)
[2021-02-15] MEDS: Enoxaparin 40 MG/0.4 ML SYR SUBCUT SCH (21:04)
[2021-02-15] MEDS: Lidocaine Patch REMOVE PATCH PATCH OFF SCH (21:04)
[2021-02-16] MEDS: ceFAZolin 2 GM PREMIX 2 GM/50 ML BAG IVPB SCH ×3 (05:33→21:23)
[2021-02-16] MEDS: Venlafaxine XR 75 mg PO SCH (08:43)
[2021-02-16] MEDS: Buprenorp/Nalox 4-1 MG FILM SL FILM SCH (08:43)
[2021-02-16] MEDS: Nicotine PATCH 21 MG/24 HR PATCH TRANSDERM SCH (08:44)
[2021-02-16] MEDS: Lidocaine PATCH 5% PATCH TRANSDERM SCH (08:44)
[2021-02-16] MEDS: ATOMOXETINE 40 MG PO SCH (08:45)
[2021-02-16] MEDS: Magnesium Hydroxide LIQ 30 ML UDC PO PRN (09:04)
[2021-02-16] MEDS: Senna TAB 8.6 mg TAB PO PRN (17:49)
[2021-02-16] MEDS: Polyethylene Glycol 3350 17 GM PACKET PO PRN (20:11)
[2021-02-16] MEDS: Enoxaparin 40 MG/0.4 ML SYR SUBCUT SCH (21:17)
[2021-02-16] MEDS: Lidocaine Patch REMOVE PATCH PATCH OFF SCH (21:23)
[2021-02-17] MEDS: Magnesium Hydroxide LIQ 30 ML UDC PO PRN ×2 (03:08→09:29)
[2021-02-17] MEDS: ceFAZolin 2 GM PREMIX 2 GM/50 ML BAG IVPB SCH ×3 (05:30→21:48)
[2021-02-17] MEDS: Nicotine PATCH 21 MG/24 HR PATCH TRANSDERM SCH (09:29)
[2021-02-17] MEDS: Lidocaine PATCH 5% PATCH TRANSDERM SCH (09:29)
[2021-02-17] MEDS: Polyethylene Glycol 3350 17 GM PACKET PO PRN (09:29)
[2021-02-17] MEDS: Nicotine GUM 4MG FRUIT FLAVOR PO PRN (09:34)
[2021-02-17] MEDS: Venlafaxine XR 75 mg PO SCH (09:34)
[2021-02-17] MEDS: Buprenorp/Nalox 4-1 MG FILM SL FILM SCH (09:36)
[2021-02-17] MEDS: ATOMOXETINE 40 MG PO SCH (12:51)
[2021-02-17] MEDS: Enoxaparin 40 MG/0.4 ML SYR SUBCUT SCH (21:48)
[2021-02-17] MEDS: Lidocaine Patch REMOVE PATCH PATCH OFF SCH (21:50)
[2021-02-18] MEDS: ceFAZolin 2 GM PREMIX 2 GM/50 ML BAG IVPB SCH ×3 (05:49→22:00)
[2021-02-18] MEDS: Venlafaxine XR 75 mg PO SCH (11:13)
[2021-02-18] MEDS: Nicotine PATCH 21 MG/24 HR PATCH TRANSDERM SCH (11:16)
[2021-02-18] MEDS: ATOMOXETINE 40 MG PO SCH (11:18)
[2021-02-18] MEDS: Buprenorp/Nalox 4-1 MG FILM SL FILM SCH (11:19)
[2021-02-18] MEDS: Lidocaine PATCH 5% PATCH TRANSDERM SCH (11:21)
[2021-02-18] MEDS: Nicotine GUM 4MG FRUIT FLAVOR PO PRN ×2 (11:27→19:33)
[2021-02-18] MEDS: Polyethylene Glycol 3350 17 GM PACKET PO PRN (11:30)
[2021-02-18] MEDS: Al Hydrox/Mg Hydrox/Simet LIQ 30 ML UDC PO PRN (11:30)
[2021-02-18] MEDS: Lidocaine Patch REMOVE PATCH PATCH OFF SCH (19:34)
[2021-02-18] MEDS: Enoxaparin 40 MG/0.4 ML SYR SUBCUT SCH (21:59)
[2021-02-19] MEDS: ceFAZolin 2 GM PREMIX 2 GM/50 ML BAG IVPB SCH ×3 (05:38→22:17)
[2021-02-19] MEDS: Nicotine PATCH 21 MG/24 HR PATCH TRANSDERM SCH (10:16)
[2021-02-19] MEDS: Polyethylene Glycol 3350 17 GM PACKET PO PRN (10:17)
[2021-02-19] MEDS: Lidocaine PATCH 5% PATCH TRANSDERM SCH (10:17)
[2021-02-19] MEDS: Venlafaxine XR 75 mg PO SCH (10:19)
[2021-02-19] MEDS: Al Hydrox/Mg Hydrox/Simet LIQ 30 ML UDC PO PRN (10:40)
[2021-02-19] MEDS: ATOMOXETINE 40 MG PO SCH (10:40)
[2021-02-19] MEDS: Buprenorp/Nalox 4-1 MG FILM SL FILM SCH (10:47)
[2021-02-19] MEDS: Nicotine GUM 4MG FRUIT FLAVOR PO PRN ×2 (12:54→20:47)
[2021-02-19] MEDS: Magnesium Hydroxide LIQ 30 ML UDC PO PRN (20:47)
[2021-02-19] MEDS: Senna TAB 8.6 mg TAB PO PRN (20:47)
[2021-02-19] MEDS: Enoxaparin 40 MG/0.4 ML SYR SUBCUT SCH (20:47)
[2021-02-19] MEDS: Lidocaine Patch REMOVE PATCH PATCH OFF SCH (20:49)
[2021-02-20] MEDS: ceFAZolin 2 GM PREMIX 2 GM/50 ML BAG IVPB SCH ×3 (06:06→21:29)
[2021-02-20] MEDS: Nicotine GUM 4MG FRUIT FLAVOR PO PRN ×4 (06:06→20:06)
[2021-02-20 06:30] LABS: ABS Basophils 0.1 10^3/ul (0-0.2); ABS Eosinophils 0.3 10^3/ul (0-0.6); ABS Lymphocytes 1.9 10^3/ul (1.0-4.8); ABS Monocytes 0.5 10^3/ul (0-0.8); ABS Neutrophils 2.6 10^3/ul (1.5-7.7); Eosinophil % 5.3 %; Hematocrit 37 % (35-47); Hemoglobin 12.4 g/dL (12.0-16.0); Lymphocyte % 35.8 %; Mean Corpuscular HGB Conc 34 g/dL (31-36); Mean Corpuscular Hemoglobin 30 pg (27-31); Mean Corpuscular Volume 89 fL (80-97); Mean Platelet Volume 7.4 fL (7.4-10.4); Platelet Count 355 10^3/uL (150-450); Red Blood Count 4.12 10^6 /uL (3.70-4.87); Red Cell Distribution Width 13 % (10-15); White Blood Count 5.4 10^3/uL (3.5-10.8)
[2021-02-20 06:46] LABS: Albumin 3.5 g/dL (3.2-5.2); Albumin/Globulin Ratio 0.9 (1-3); BUN/Creatinine Ratio 32.8 (8-20); C Reactive Protein 12.9 mg/L (<8.01); Calcium 9.2 mg/dL (8.6-10.3); EGFR African American 128.9 (>60); EGFR Non-African American 106.5 (>60); Globulin 3.8 g/dL (2-4); Potassium 4.3 mmol/L (3.5-5.0); Total Bilirubin 0.3 mg/dL (0.2-1.0); Total Protein 7.3 g/dL (6.4-8.9)
[2021-02-20] MEDS: Venlafaxine XR 75 mg PO SCH (09:24)
[2021-02-20] MEDS: Nicotine PATCH 21 MG/24 HR PATCH TRANSDERM SCH (09:27)
[2021-02-20] MEDS: ATOMOXETINE 40 MG PO SCH (09:28)
[2021-02-20] MEDS: Lidocaine PATCH 5% PATCH TRANSDERM SCH (09:29)
[2021-02-20] MEDS: Buprenorp/Nalox 4-1 MG FILM SL FILM SCH (10:20)
[2021-02-20] MEDS: Enoxaparin 40 MG/0.4 ML SYR SUBCUT SCH (20:04)
[2021-02-20] MEDS: Magnesium Hydroxide LIQ 30 ML UDC PO PRN (20:04)
[2021-02-20] MEDS: Senna TAB 8.6 mg TAB PO PRN (20:06)
[2021-02-20] MEDS: Lidocaine Patch REMOVE PATCH PATCH OFF SCH (20:09)
[2021-02-21] MEDS: ceFAZolin 2 GM PREMIX 2 GM/50 ML BAG IVPB SCH ×3 (06:14→21:49)
[2021-02-21] MEDS: ATOMOXETINE 40 MG PO SCH (09:26)
[2021-02-21] MEDS: Lidocaine PATCH 5% PATCH TRANSDERM SCH (09:26)
[2021-02-21] MEDS: Nicotine PATCH 21 MG/24 HR PATCH TRANSDERM SCH (09:26)
[2021-02-21] MEDS: Venlafaxine XR 75 mg PO SCH (09:27)
[2021-02-21] MEDS: Buprenorp/Nalox 4-1 MG FILM SL FILM SCH (09:27)
[2021-02-21] MEDS: Magnesium Hydroxide LIQ 30 ML UDC PO PRN (10:17)
[2021-02-21] MEDS: Nicotine GUM 4MG FRUIT FLAVOR PO PRN ×3 (10:17→21:07)
[2021-02-21] MEDS: Lidocaine Patch REMOVE PATCH PATCH OFF SCH (21:49)
[2021-02-21] MEDS: Enoxaparin 40 MG/0.4 ML SYR SUBCUT SCH (21:49)
[2021-02-22] MEDS: ceFAZolin 2 GM PREMIX 2 GM/50 ML BAG IVPB SCH ×3 (05:33→21:01)
[2021-02-22] MEDS: Nicotine GUM 4MG FRUIT FLAVOR PO PRN ×4 (06:08→20:56)
[2021-02-22] MEDS: Lidocaine PATCH 5% PATCH TRANSDERM SCH (08:13)
[2021-02-22] MEDS: Buprenorp/Nalox 4-1 MG FILM SL FILM SCH (08:13)
[2021-02-22] MEDS: Venlafaxine XR 75 mg PO SCH (08:15)
[2021-02-22] MEDS: ATOMOXETINE 40 MG PO SCH (08:15)
[2021-02-22] MEDS: Nicotine PATCH 21 MG/24 HR PATCH TRANSDERM SCH (08:18)
[2021-02-22] MEDS: Polyethylene Glycol 3350 17 GM PACKET PO PRN (10:58)
[2021-02-22] MEDS: Magnesium Hydroxide LIQ 30 ML UDC PO PRN (10:58)
[2021-02-22] MEDS: Senna TAB 8.6 mg TAB PO PRN (20:56)
[2021-02-22] MEDS: Lidocaine Patch REMOVE PATCH PATCH OFF SCH (20:58)
[2021-02-22] MEDS: Enoxaparin 40 MG/0.4 ML SYR SUBCUT SCH (20:58)
[2021-02-23] MEDS: ceFAZolin 2 GM PREMIX 2 GM/50 ML BAG IVPB SCH ×3 (05:40→22:18)
[2021-02-23] MEDS: Nicotine GUM 4MG FRUIT FLAVOR PO PRN ×5 (06:30→21:15)
[2021-02-23] MEDS: Lidocaine PATCH 5% PATCH TRANSDERM SCH (08:41)
[2021-02-23] MEDS: ATOMOXETINE 40 MG PO SCH (08:42)
[2021-02-23] MEDS: Polyethylene Glycol 3350 17 GM PACKET PO PRN (08:42)
[2021-02-23] MEDS: Magnesium Hydroxide LIQ 30 ML UDC PO PRN ×2 (08:42→21:14)
[2021-02-23] MEDS: Buprenorp/Nalox 4-1 MG FILM SL FILM SCH (08:43)
[2021-02-23] MEDS: Nicotine PATCH 21 MG/24 HR PATCH TRANSDERM SCH (08:43)
[2021-02-23] MEDS: Venlafaxine XR 75 mg PO SCH (08:45)
[2021-02-23] MEDS: Senna TAB 8.6 mg TAB PO PRN (21:15)
[2021-02-23] MEDS: Enoxaparin 40 MG/0.4 ML SYR SUBCUT SCH (21:16)
[2021-02-23] MEDS: Lidocaine Patch REMOVE PATCH PATCH OFF SCH (21:18)
[2021-02-24] MEDS: Nicotine GUM 4MG FRUIT FLAVOR PO PRN ×6 (01:41→20:41)
[2021-02-24] MEDS: ceFAZolin 2 GM PREMIX 2 GM/50 ML BAG IVPB SCH ×3 (06:00→22:00)
[2021-02-24] MEDS: Polyethylene Glycol 3350 17 GM PACKET PO PRN ×2 (08:04→20:35)
[2021-02-24] MEDS: ATOMOXETINE 40 MG PO SCH (08:05)
[2021-02-24] MEDS: Lidocaine PATCH 5% PATCH TRANSDERM SCH (08:05)
[2021-02-24] MEDS: Magnesium Hydroxide LIQ 30 ML UDC PO PRN ×2 (08:05→20:37)
[2021-02-24] MEDS: Nicotine PATCH 21 MG/24 HR PATCH TRANSDERM SCH (08:05)
[2021-02-24] MEDS: Venlafaxine XR 75 mg PO SCH (08:06)
[2021-02-24] MEDS: Buprenorp/Nalox 4-1 MG FILM SL FILM SCH (08:06)
[2021-02-24 08:52] LABS: BUN/Creatinine Ratio 17.9 (8-20); EGFR African American 115.7 (>60); EGFR Non-African American 95.6 (>60); Potassium 4.3 mmol/L (3.5-5.0)
[2021-02-24] MEDS: Senna TAB 8.6 mg TAB PO PRN (20:40)
[2021-02-24] MEDS: Enoxaparin 40 MG/0.4 ML SYR SUBCUT SCH (20:41)
[2021-02-24] MEDS: Lidocaine Patch REMOVE PATCH PATCH OFF SCH (20:41)
[2021-02-25] MEDS: Nicotine GUM 4MG FRUIT FLAVOR PO PRN ×6 (02:00→23:00)
[2021-02-25] MEDS: ceFAZolin 2 GM PREMIX 2 GM/50 ML BAG IVPB SCH ×3 (06:11→21:31)
[2021-02-25] MEDS: Lidocaine PATCH 5% PATCH TRANSDERM SCH (08:15)
[2021-02-25] MEDS: Nicotine PATCH 21 MG/24 HR PATCH TRANSDERM SCH (08:16)
[2021-02-25] MEDS: ATOMOXETINE 40 MG PO SCH (08:16)
[2021-02-25] MEDS: Al Hydrox/Mg Hydrox/Simet LIQ 30 ML UDC PO PRN ×2 (08:22→21:45)
[2021-02-25] MEDS: Buprenorp/Nalox 4-1 MG FILM SL FILM SCH (08:22)
[2021-02-25] MEDS: Polyethylene Glycol 3350 17 GM PACKET PO PRN ×2 (08:24→21:46)
[2021-02-25] MEDS: Venlafaxine XR 75 mg PO SCH (08:25)
[2021-02-25] MEDS: Senna TAB 8.6 mg TAB PO PRN (21:42)
[2021-02-25] MEDS: Lidocaine Patch REMOVE PATCH PATCH OFF SCH (21:44)
[2021-02-25] MEDS: Enoxaparin 40 MG/0.4 ML SYR SUBCUT SCH (21:44)
[2021-02-25] MEDS: Magnesium Hydroxide LIQ 30 ML UDC PO PRN (21:45)
[2021-02-26] MEDS: ceFAZolin 2 GM PREMIX 2 GM/50 ML BAG IVPB SCH ×3 (05:50→21:57)
[2021-02-26] MEDS: Venlafaxine XR 75 mg PO SCH (09:04)
[2021-02-26] MEDS: Lidocaine PATCH 5% PATCH TRANSDERM SCH (09:06)
[2021-02-26] MEDS: Buprenorp/Nalox 4-1 MG FILM SL FILM SCH (09:07)
[2021-02-26] MEDS: Polyethylene Glycol 3350 17 GM PACKET PO PRN (09:07)
[2021-02-26] MEDS: Nicotine PATCH 21 MG/24 HR PATCH TRANSDERM SCH (09:07)
[2021-02-26] MEDS: ATOMOXETINE 40 MG PO SCH (09:09)
[2021-02-26] MEDS: Magnesium Hydroxide LIQ 30 ML UDC PO PRN (09:10)
[2021-02-26] MEDS: Nicotine GUM 4MG FRUIT FLAVOR PO PRN ×5 (09:22→21:31)
[2021-02-26] MEDS: Enoxaparin 40 MG/0.4 ML SYR SUBCUT SCH (21:31)
[2021-02-26] MEDS: Lidocaine Patch REMOVE PATCH PATCH OFF SCH (21:31)
[2021-02-26] MEDS: Senna TAB 8.6 mg TAB PO PRN (21:42)
[2021-02-27] MEDS: ceFAZolin 2 GM PREMIX 2 GM/50 ML BAG IVPB SCH ×3 (05:24→22:23)
[2021-02-27 05:36] LABS: ABS Eosinophils 0.3 10^3/ul (0-0.6); ABS Monocytes 0.5 10^3/ul (0-0.8); ABS Neutrophils 2.6 10^3/ul (1.5-7.7); Eosinophil % 5.6 %; Hematocrit 36 % (35-47); Hemoglobin 11.9 g/dL (12.0-16.0); Lymphocyte % 35.8 %; Mean Corpuscular HGB Conc 34 g/dL (31-36); Mean Corpuscular Hemoglobin 30 pg (27-31); Mean Corpuscular Volume 90 fL (80-97); Mean Platelet Volume 7.7 fL (7.4-10.4); Platelet Count 334 10^3/uL (150-450); Red Blood Count 3.97 10^6 /uL (3.70-4.87); Red Cell Distribution Width 14 % (10-15); White Blood Count 5.5 10^3/uL (3.5-10.8)
[2021-02-27 05:52] LABS: Albumin 3.5 g/dL (3.2-5.2); Albumin/Globulin Ratio 0.9 (1-3); BUN/Creatinine Ratio 25.4 (8-20); Calcium 9.4 mg/dL (8.6-10.3); EGFR African American 108.2 (>60); EGFR Non-African American 89.4 (>60); Globulin 3.7 g/dL (2-4); Potassium 4.2 mmol/L (3.5-5.0); Total Bilirubin 0.3 mg/dL (0.2-1.0); Total Protein 7.2 g/dL (6.4-8.9)
[2021-02-27] MEDS: Nicotine GUM 4MG FRUIT FLAVOR PO PRN ×5 (10:02→22:29)
[2021-02-27] MEDS: Nicotine PATCH 21 MG/24 HR PATCH TRANSDERM SCH (10:03)
[2021-02-27] MEDS: Lidocaine PATCH 5% PATCH TRANSDERM SCH (10:03)
[2021-02-27] MEDS: Buprenorp/Nalox 4-1 MG FILM SL FILM SCH (10:03)
[2021-02-27] MEDS: Venlafaxine XR 75 mg PO SCH (10:03)
[2021-02-27] MEDS: ATOMOXETINE 40 MG PO SCH (10:10)
[2021-02-27] MEDS: Polyethylene Glycol 3350 17 GM PACKET PO PRN (13:59)
[2021-02-27] MEDS: Magnesium Hydroxide LIQ 30 ML UDC PO PRN ×2 (13:59→20:37)
[2021-02-27] MEDS: Senna TAB 8.6 mg TAB PO PRN (20:36)
[2021-02-27] MEDS: Enoxaparin 40 MG/0.4 ML SYR SUBCUT SCH (20:36)
[2021-02-27] MEDS: Lidocaine Patch REMOVE PATCH PATCH OFF SCH (20:39)
[2021-02-28] MEDS: Nicotine GUM 4MG FRUIT FLAVOR PO PRN ×5 (04:21→21:09)
[2021-02-28] MEDS: ceFAZolin 2 GM PREMIX 2 GM/50 ML BAG IVPB SCH ×3 (06:35→21:27)
[2021-02-28] MEDS: Venlafaxine XR 75 mg PO SCH (09:00)
[2021-02-28] MEDS: Lidocaine PATCH 5% PATCH TRANSDERM SCH ×2 (09:01→09:06)
[2021-02-28] MEDS: Buprenorp/Nalox 4-1 MG FILM SL FILM SCH (09:01)
[2021-02-28] MEDS: Nicotine PATCH 21 MG/24 HR PATCH TRANSDERM SCH ×2 (09:01→09:06)
[2021-02-28] MEDS: ATOMOXETINE 40 MG PO SCH (09:02)
[2021-02-28] MEDS: Magnesium Hydroxide LIQ 30 ML UDC PO PRN (09:03)
[2021-02-28 13:09] LABS: ABS Basophils 0.1 10^3/ul (0-0.2); ABS Eosinophils 0.3 10^3/ul (0-0.6); ABS Lymphocytes 1.5 10^3/ul (1.0-4.8); ABS Monocytes 0.6 10^3/ul (0-0.8); ABS Neutrophils 4.2 10^3/ul (1.5-7.7); Eosinophil % 3.9 %; Hematocrit 38 % (35-47); Hemoglobin 12.4 g/dL (12.0-16.0); Lymphocyte % 21.9 %; Mean Corpuscular HGB Conc 33 g/dL (31-36); Mean Corpuscular Hemoglobin 30 pg (27-31); Mean Corpuscular Volume 90 fL (80-97); Mean Platelet Volume 7.7 fL (7.4-10.4); Platelet Count 346 10^3/uL (150-450); Red Blood Count 4.16 10^6 /uL (3.70-4.87); Red Cell Distribution Width 13 % (10-15); White Blood Count 6.6 10^3/uL (3.5-10.8)
[2021-02-28] MEDS: Polyethylene Glycol 3350 17 GM PACKET PO PRN (14:00)
[2021-02-28 14:03] LABS: BUN/Creatinine Ratio 21.1 (8-20); Calcium 9.6 mg/dL (8.6-10.3); EGFR African American 108.2 (>60); EGFR Non-African American 89.4 (>60); Potassium 4.1 mmol/L (3.5-5.0); Total Protein 7.8 g/dL (6.4-8.9)
[2021-02-28 14:04] LABS: Albumin/Globulin Ratio 1.1 (1-3); C Reactive Protein 9.51 mg/L (<8.01); Globulin 3.8 g/dL (2-4); Total Bilirubin 0.3 mg/dL (0.2-1.0)
[2021-02-28 15:38] LABS: C Reactive Protein 10.44 mg/L (<8.01)
[2021-02-28] MEDS: Enoxaparin 40 MG/0.4 ML SYR SUBCUT SCH (21:00)
[2021-02-28] MEDS: Senna TAB 8.6 mg TAB PO PRN (21:09)
[2021-02-28] MEDS: Lidocaine Patch REMOVE PATCH PATCH OFF SCH (21:10)
[2021-03-01] MEDS: ceFAZolin 2 GM PREMIX 2 GM/50 ML BAG IVPB SCH ×3 (05:09→21:04)
[2021-03-01] MEDS: Nicotine GUM 4MG FRUIT FLAVOR PO PRN ×5 (09:17→20:55)
[2021-03-01] MEDS: ATOMOXETINE 40 MG PO SCH (09:17)
[2021-03-01] MEDS: Venlafaxine XR 75 mg PO SCH (09:18)
[2021-03-01] MEDS: Lidocaine PATCH 5% PATCH TRANSDERM SCH (09:19)
[2021-03-01] MEDS: Nicotine PATCH 21 MG/24 HR PATCH TRANSDERM SCH (09:19)
[2021-03-01] MEDS: Buprenorp/Nalox 4-1 MG FILM SL FILM SCH (09:19)
[2021-03-01] MEDS: Polyethylene Glycol 3350 17 GM PACKET PO PRN (10:16)
[2021-03-01] MEDS: Magnesium Hydroxide LIQ 30 ML UDC PO PRN ×2 (10:20→20:54)
[2021-03-01] MEDS: Lidocaine Patch REMOVE PATCH PATCH OFF SCH (20:53)
[2021-03-01] MEDS: Enoxaparin 40 MG/0.4 ML SYR SUBCUT SCH (20:58)
[2021-03-02] MEDS: Nicotine GUM 4MG FRUIT FLAVOR PO PRN ×6 (04:45→21:44)
[2021-03-02] MEDS: ceFAZolin 2 GM PREMIX 2 GM/50 ML BAG IVPB SCH ×3 (05:27→21:38)
[2021-03-02] MEDS: Lidocaine PATCH 5% PATCH TRANSDERM SCH (09:19)
[2021-03-02] MEDS: Polyethylene Glycol 3350 17 GM PACKET PO PRN (09:19)
[2021-03-02] MEDS: Venlafaxine XR 75 mg PO SCH (09:20)
[2021-03-02] MEDS: Buprenorp/Nalox 4-1 MG FILM SL FILM SCH (09:21)
[2021-03-02] MEDS: ATOMOXETINE 40 MG PO SCH (09:21)
[2021-03-02] MEDS: Nicotine PATCH 21 MG/24 HR PATCH TRANSDERM SCH (09:22)
[2021-03-02] MEDS: Magnesium Hydroxide LIQ 30 ML UDC PO PRN ×2 (12:34→21:44)
[2021-03-02] MEDS ORDERED: Senna TAB 8.6 mg TAB PO ONE (18:29)
[2021-03-02] MEDS: Senna TAB 8.6 mg TAB PO PRN ×2 (19:20→21:42)
[2021-03-02] MEDS: Lidocaine Patch REMOVE PATCH PATCH OFF SCH (21:20)
[2021-03-02] MEDS: Al Hydrox/Mg Hydrox/Simet LIQ 30 ML UDC PO PRN (21:45)
[2021-03-02] MEDS: Enoxaparin 40 MG/0.4 ML SYR SUBCUT SCH (21:45)
[2021-03-03] MEDS: ceFAZolin 2 GM PREMIX 2 GM/50 ML BAG IVPB SCH (05:39)
[2021-03-03 08:09] VITALS: BP 94/63
[2021-03-03] MEDS ORDERED: COVID-19 VACCINE, MRNA(PFIZER)/PF 30 MCG/0.3 ML IM ONE ×2 (09:00→10:00)
[2021-03-03] MEDS: Venlafaxine XR 75 mg PO SCH (09:30)
[2021-03-03] MEDS: Buprenorp/Nalox 4-1 MG FILM SL FILM SCH (09:31)
[2021-03-03] MEDS: Nicotine GUM 4MG FRUIT FLAVOR PO PRN ×2 (09:31→09:32)
[2021-03-03] MEDS: Nicotine PATCH 21 MG/24 HR PATCH TRANSDERM SCH (09:34)
[2021-03-03] MEDS: ATOMOXETINE 40 MG PO SCH (09:35)
[2021-03-03] MEDS: Lidocaine PATCH 5% PATCH TRANSDERM SCH (09:51)
== END 2021-03-03 11:39 | disposition home or self-care (01) | DRG 49 ==
LOC: MEDTELE 13:38 → SUATTDRO 13:38 → MEDTELE 02-11 15:17 → MED 02-13 03:13
PROVIDERS: ADMIT Pediatrics; ATTEND Hospitalist